=== PATIENT | male | born 1955 | race Caucasian/White ===

== ENCOUNTER 2018-11-22 05:46 | Inpatient (IN) ==
[2018-11-22] MEDS ORDERED: Ketamine Inj 50 MG/5 ML Syringe IV.PUSH ONE ×2 (05:49→07:05)
[2018-11-22] MEDS ORDERED: Midazolam Inj 5 MG/ML 1 ML Vial IV.PUSH ONE (05:53)
[2018-11-22] MEDS ORDERED: fentaNYL Citrate Inj 100 MCG/2 ML Ampul IV.PUSH ONE (05:53)
[2018-11-22 06:15] LABS: Baso # (Auto) 0.1 th/mm3 (0.0-0.2); Baso % (Auto) 1.3 % (0.0-2.0); Eos # (Auto) 0.4 th/mm3 (0.0-0.4); Eos % (Auto) 5.6 % (0.0-4.0); Hematocrit 37.4 % (39.0-51.0); Lymph % (Auto) 25.8 % (9.0-44.0); Mean Corpuscular HGB Conc 34.8 % (32.0-36.0); Mean Corpuscular Hemoglobin 29.9 pg (27.0-34.0); Mean Corpuscular Volume 85.8 fL (80.0-100.0); Mean Platelet Volume 9.6 fL (7.0-11.0); Mono # (Auto) 0.8 th/mm3 (0.0-0.9); Mono % (Auto) 9.9 % (0.0-8.0); Neut # (Auto) 4.4 th/mm3 (1.8-7.7); Neut % (Auto) 57.4 % (16.0-70.0); Platelet Count 250 th/mm3 (150-450); Red Blood Count 4.36 mil/mm3 (4.50-5.90); Red Cell Distribution Width 16.8 % (11.6-17.2); White Blood Count 7.7 th/mm3 (4.0-11.0)
[2018-11-22 06:16] LABS: Activated Partial Thrombo Time 24.7 sec (23.4-31.7); INR 1.1 Ratio; Prothrombin Time 10.7 sec (9.8-11.6)
[2018-11-22 06:24] LABS: ABG Base Excess -3.1 mmol/L (-2-2); ABG PCO2 59 mmHg (38-42); ABG PO2 106 mmHg (61-120)
[2018-11-22] MEDS ORDERED: Naloxone Inj 0.4 MG/ML Vial ONE (06:32)
--- NOTE | 2018-11-22 06:42 | XR ---
EXAM DATE: 11/22/2018 6:10 AM EST AGE/SEX: 63 years / Male INDICATIONS: E-T tube placement, unresponsive patient. CLINICAL DATA: This is the patient's initial encounter. Patient reports that signs and symptoms have been present for 1 day and indicates a pain score of Nonresponsive. MEDICAL/SURGICAL HISTORY: Non-responsive. Non-responsive. COMPARISON: No prior exams available for comparison. FINDINGS: Single view the chest symptoms. The pacemaker and endotracheal tube are in good position. There is pa tchy interstitial prominence throughout the lungs particularly on the right midlung zone. There is no visible pneumothorax. CONCLUSION: Diffuse pulmonary interstitial prominence. Some consolidation right midlung zone. ET tube between the clavicles and the liana Electronically signed by: Norman Ro MD Board Certified Radiologist 11/22/2018 6:41 AM EST
[2018-11-22 06:45] LABS: Albumin 3.3 g/dL (3.4-5.0); Calcium 7.4 mg/dL (8.5-10.1); Carbon Dioxide 22.9 meq/L (21.0-32.0); Magnesium 2.3 mg/dL (1.5-2.5); Potassium 3.7 meq/L (3.5-5.1); Total Protein 6.6 g/dL (6.4-8.2); Troponin I 0.03 ng/mL (0.02-0.05)
[2018-11-22] MEDS ORDERED: Azithromycin Inj 500 MG in Sodium Chlor 0.9% Inj 250 ML IV.SIG ONE (06:52)
--- NOTE | 2018-11-22 06:54 | ED ---
HPI General Chief complaint: Shortness of Breath/Dyspnea Stated complaint: Diff breathing Time Seen by Provider: 11/22/18 05:49 Source: EMS Mode of arrival: EMS Limitations: physical limitation History of Present Illness HPI narrative: 63 yo M bibems after severe dyspnea at home. Pt intubated on scene per EMS 2/2 dyspnea with hypoxia with o2 sat in the 80s. + hx CHF. BP on scene 180/120 per EMS. History is limited. EMS reported patient has CHF, no lasix given. O2 increased to approx 100 en route. Related Data Home Medications Medication Instructions Recorded Confirmed atorvastatin 40 mg PO DAILY 11/22/18 11/22/18 budesonide-formoterol [Symbicort] 2 puff INHALATION BID 11/22/18 11/22/18 clopidogrel 75 mg PO DAILY 11/22/18 11/22/18 furosemide 40 mg PO DAILY 11/22/18 11/22/18 lisinopril 2.5 mg PO DAILY 11/22/18 11/22/18 losartan 25 mg PO DAILY 11/22/18 11/22/18 metoprolol succinate 25 mg PO DAILY 11/22/18 11/22/18 pantoprazole 40 mg PO DAILY 11/22/18 11/22/18 tiotropium bromide [Spiriva 2 puff INHALATION DAILY 11/22/18 11/22/18 Respimat] trazodone 50 mg PO DAILY 11/22/18 11/22/18 Allergies Allergy/AdvReac Type Severity Reaction Status Date / Time No Known Allergies Allergy Verified 11/22/18 05:49 Review of Systems ROS Unobtainable ROS Unobtainable: unobtainable due to endotracheal tube and unobtainable due to mental condition PMFSH Medical History Medical History CHF (congestive heart failure) (Acute) GERD (gastroesophageal reflux disease) (Acute) HTN (hypertension) (Acute) High cholesterol (Acute) Social History Social History Substance History: Unable to Obtain Smoking Status: Cognitive impairment How Often Do You Have a Drink Containing Alcohol: Unable to Obtain Recent Travel in [place] within the Last 8 Weeks: No Recent Out of Country Travel within the Last 8 Weeks: No Exam Narrative Exam Narrative: GENERAL: 63 yo M, intubated SKIN: Focused skin assessment warm/dry. HEAD: Atraumatic. Normocephalic. EYES: Pupils equal and round. No scleral icterus. No injection or drainage. ENT: Pt intubated. no epistaxis. dry mucous membrane NECK: Trachea midline. + JVD. CARDIOVASCULAR: Tachycardia. Regular. RESPIRATORY: Breath sounds present bilaterally. Rales bilaterally. Intubated. GASTROINTESTINAL: Abdomen soft, non-tender, nondistended. Hepatic and splenic margins not palpable. MUSCULOSKELETAL: No obvious deformities. No clubbing. No cyanosis. Minimal edema bilaterally. NEUROLOGICAL: Awake and alert. No obvious cranial nerve deficits. Motor grossly within normal limits. Normal speech. PSYCHIATRIC: Appropriate mood and affect; insight and judgment normal. Course Initial Documented Vital Signs Respiratory Rate 24 11/22/18 05:55 Pulse Oximetry 100 11/22/18 05:55 Last Documented Vital Signs Pulse Rate 82 11/22/18 07:20 Respiratory Rate 19 11/22/18 07:20 Blood Pressure 124/74 11/22/18 07:20 Pulse Oximetry 100 11/22/18 07:15 Critical Care Time Critical Care Time: Yes Total Critical Care Time: 35 Attestation: Aggregate critical care time was 35 minutes. Time to perform other separately billable procedures was not included in the critical care time. My time did not include minutes spent treating any other patients simultaneously or on activities that did not directly contribute to the patient's treatment. The services I provided to this patient were to treat and/or prevent clinically significant deterioration that could result in: Respiratory arrest, cardiopulmonary arrest I provided critical care services requiring my management, as noted below: Chart data review, documentation time, medication orders and management, vital sign assessments/reviewing monitor data, ordering and reviewing lab tests, ordering and interpreting/reviewing x-rays and diagnostic studies, care of the patient and discussion of the patient with the admitting physicians. Medical Decision Making MDM Narrative Medical decision making narrative: CBC normal BUN/Cr 34/1.71 BNP 589 EKG sinus rate 84, nonspecific ST changes multiple leads abg 7.23/59/24 BE -3.1 PO2 106 CXR R lung pna, diffuse pulmonary interstitial prominence Pt with probable PNA and CHF exacerbation. Preexisting pulmonary interstitial disease not excluded. Rocephin azitho started Blood cultures drawn Lasix 60mg Ketamine 50mg IV x 2 here Versed 5mg IV x 1 Sedation complicated by hypotension d/w Dr Pruett for import/export administrator service Medical Screen Exam Complete: Yes Emergency Medical Condition: Yes Lab Data Result diagrams: 11/22/18 05:45 11/22/18 05:45 Lab Results 11/22/18 11/22/18 11/22/18 Range/Units 05:45 05:45 05:45 WBC 7.7 (4.0-11.0) th/mm3 RBC 4.36 L (4.50-5.90) mil/mm3 Hgb 13.0 (13.0-17.0) gm/dL Hct 37.4 L (39.0-51.0) % MCV 85.8 (80.0-100.0) fL MCH 29.9 (27.0-34.0) pg MCHC 34.8 (32.0-36.0) % RDW 16.8 (11.6-17.2) % Plt Count 250 (150-450) th/mm3 MPV 9.6 (7.0-11.0) fL Neut % (Auto) 57.4 (16.0-70.0) % Lymph % (Auto) 25.8 (9.0-44.0) % Wharton % (Auto) 9.9 H (0.0-8.0) % Eos % (Auto) 5.6 H (0.0-4.0) % Baso % (Auto) 1.3 (0.0-2.0) % Neut # (Auto) 4.4 (1.8-7.7) th/mm3 Lymph # (Auto) 2.0 (1.0-4.8) th/mm3 Wharton # (Auto) 0.8 (0.0-0.9) th/mm3 Eos # (Auto) 0.4 (0.0-0.4) th/mm3 Baso # (Auto) 0.1 (0.0-0.2) th/mm3 WBC Differential . Differential Comment Auto diff final PT 10.7 (9.8-11.6) sec INR 1.1 Ratio APTT 24.7 (23.4-31.7) sec Puncture Site Patient Temperature O2 Saturation (90-100) % ABG pH (7.380-7.420) ABG pCO2 (38-42) mmHg ABG pO2 (61-120) mmHg ABG HCO3 (22-26) mmol/L ABG O2 Content (12.0-20.0) Vol % ABG Base Excess (-2-2) mmol/L ABG Methemoglobin (0-2) % Dmitriy Test Hemoglobin (12.0-16.0) G/DL Carboxyhemoglobin (0-4) % O2 Delivery Device Vent Setting Inspired O2 % Critical Value Sodium 136 (136-145) meq/L Potassium 3.7 (3.5-5.1) meq/L Chloride 103 (98-107) meq/L Carbon Dioxide 22.9 (21.0-32.0) meq/L Anion Gap 10 (5-15) meq/L BUN 34 H (7-18) mg/dL Creatinine 1.71 H (0.60-1.30) mg/dL Estimated GFR 40 L (>89) mL/min Random Glucose 171 H (74-106) mg/dL Calcium 7.4 L* (8.5-10.1) mg/dL Calcium Adj for Albumin 8.0 L (8.5-10.1) mg/dL Magnesium 2.3 (1.5-2.5) mg/dL Total Bilirubin 0.3 (0.2-1.0) mg/dL AST 21 (15-37) U/L ALT 20 (12-78) U/L Alkaline Phosphatase 77 (45-117) U/L Troponin I 0.03 (0.02-0.05) ng/mL B-Natriuretic Peptide (0-100) pg/mL Total Protein 6.6 (6.4-8.2) g/dL Albumin 3.3 L (3.4-5.0) g/dL 11/22/18 11/22/18 Range/Units 05:45 06:11 WBC (4.0-11.0) th/mm3 RBC (4.50-5.90) mil/mm3 Hgb (13.0-17.0) gm/dL Hct (39.0-51.0) % MCV (80.0-100.0) fL MCH (27.0-34.0) pg MCHC (32.0-36.0) % RDW (11.6-17.2) % Plt Count (150-450) th/mm3 MPV (7.0-11.0) fL Neut % (Auto) (16.0-70.0) % Lymph % (Auto) (9.0-44.0) % Wharton % (Auto) (0.0-8.0) % Eos % (Auto) (0.0-4.0) % Baso % (Auto) (0.0-2.0) % Neut # (Auto) (1.8-7.7) th/mm3 Lymph # (Auto) (1.0-4.8) th/mm3 Wharton # (Auto) (0.0-0.9) th/mm3 Eos # (Auto) (0.0-0.4) th/mm3 Baso # (Auto) (0.0-0.2) th/mm3 WBC Differential Differential Comment PT (9.8-11.6) sec INR Ratio APTT (23.4-31.7) sec Puncture Site Left radial Patient Temperature 98.6 O2 Saturation 94 (90-100) % ABG pH 7.23 L* (7.380-7.420) ABG pCO2 59 H* (38-42) mmHg ABG pO2 106 (61-120) mmHg ABG HCO3 24 (22-26) mmol/L ABG O2 Content 16.0 (12.0-20.0) Vol % ABG Base Excess -3.1 L (-2-2) mmol/L ABG Methemoglobin 0.6 (0-2) % Dmitriy Test Present Hemoglobin 12.0 (12.0-16.0) G/DL Carboxyhemoglobin 2.7 (0-4) % O2 Delivery Device Ventilator Vent Setting See comments Inspired O2 50 % Critical Value Yes Sodium (136-145) meq/L Potassium (3.5-5.1) meq/L Chloride (98-107) meq/L Carbon Dioxide (21.0-32.0) meq/L Anion Gap (5-15) meq/L BUN (7-18) mg/dL Creatinine (0.60-1.30) mg/dL Estimated GFR (>89) mL/min Random Glucose (74-106) mg/dL Calcium (8.5-10.1) mg/dL Calcium Adj for Albumin (8.5-10.1) mg/dL Magnesium (1.5-2.5) mg/dL Total Bilirubin (0.2-1.0) mg/dL AST (15-37) U/L ALT (12-78) U/L Alkaline Phosphatase (45-117) U/L Troponin I (0.02-0.05) ng/mL B-Natriuretic Peptide 589 H (0-100) pg/mL Total Protein (6.4-8.2) g/dL Albumin (3.4-5.0) g/dL Imaging Data Radiologist's impression: Chest X-Ray 11/22/18 05:50 CONCLUSION: Diffuse pulmonary interstitial prominence. Some consolidation right midlung zone. ET tube between the clavicles and the liana Discharge Plan Discharge Disposition Patient Disposition: ED Admit(ED Internal Use Only) Discharge Order Discharge Orders: ED Use Only Admit Order (Routine); Ordered 11/22/18 Ordered By: Samna Zhang Physicians Team ED Provider: Saman Zhang Primary Care Provider: MICKI, Attending Provider: Katlyn Pruett Discharge Interventions Interventions: Vital Signs Last Done: 11/22/18 07:20 Status ED Status: Admitted Patient
[2018-11-22] MEDS ORDERED: Propofol 1000 mg/100 ml Inj 1,000 MG/100 ML BOTTLE ONE (07:38)
[2018-11-22] MEDS: Enoxaparin Inj 40 MG/0.4 ML Syringe SQ SCH (08:58)
--- NOTE | 2018-11-22 09:18 | P.HPCC ---
History of Present Illness Service: Critical care Primary Care Physician: UNKNOWN Chief Complaint: SOB History of Present Illness: Patient is a 63-year-old male who normally lives in [place], currently visiting son in [place]. He has a history of CHF EF 25%, probable COPD, continued tobacco abuse, hypertension, dyslipidemia. Patient developed severe dyspnea while at his son's home EMS was called oxygen sats were in 80s blood pressure was 180/120. Due to impending respiratory failure patient was emergently intubated by the EMS. ER workup including chest x-ray showed bilateral pulmonary edema and probable right lung consolidation. BUN/Cr 34/1.71, BNP 589. ABG 7.23/59/24 BE -3.1 PO2 106. Patient received breathing treatment, antibiotics Rocephin and azithromycin and 60 mg of IV Lasix in the ED. critical care medicine was consulted for admission I evaluated the patient in the ED. his son is at the bedside. Currently sedated with propofol and fentanyl mildly hypotensive. Bilateral crackles on exam. He acknowledges history of CHF indicates that this ejection fraction is 25%. Patient is currently making urine with 60 mg IV Lasix given. We will start Lasix 40 mg scheduled every 8 hours. Placed on scheduled DuoNeb and as needed. Change antibiotic to cefepime and azithromycin. May need to start low- dose Levophed to maintain map above 65 - Diagnosis (1) Acute hypoxemic respiratory failure (2) Hypercarbia (3) Acute systolic heart failure (4) Pulmonary edema (5) Pneumonia (6) Acute kidney failure (7) History of CHF (congestive heart failure) (8) Coronary artery disease (9) Dyslipidemia (10) Ischemic cardiomyopathy (11) Tobacco abuse Inpatient Certification: I certify that the inpatient services were ordered in accordance with Medicare regulations governing the order. This includes certification that hospital inpatient services are reasonable and necessary and in the case of services not specified as inpatient-only under 42 CFR 419.22(n), that they are appropriately provided as inpatient services in accordance to with the 2-midnight benchmark under 43 CFR 412.3(e) Estimated Total Length of Stay (Days): 5 Plans for Post Hospital Care: Not yet determined Review of Systems unobtainable due to endotracheal tube PMFSH - History History Provided By: Land Title Examiner / EMT - Medical History Medical History: Medical History (Last Reviewed 11/22/18 @ 09:27 by Katlyn Pruett MD) CHF (congestive heart failure) GERD (gastroesophageal reflux disease) HTN (hypertension) High cholesterol - Tobacco History Smoking Status: Cognitive impairment - Alcohol History How Often Do You Have a Drink Containing Alcohol: Unable to Obtain - Substance Use History Substance History: Unable to Obtain - Travel History Recent Travel in the [place] Within the Last 8 Weeks: No Recent Travel Out of the Country Within the Last 8 Weeks: No - Immunization History Tetanus Immunization: Unable to Assess Medications and Allergies Active Medications: Active Medications Albuterol (Duoneb Neb (Prn)) 1 ampul NEB Q4HR NEB PRN PRN Reason: SHORTNESS OF BREATH Albuterol (Duoneb Neb (Alberto)) 1 ampul NEB Q6HR NEB ALBERTO Last Admin: 11/22/18 08:26 Dose: 1 ampul Atorvastatin Calcium (Lipitor) 40 mg PO DAILY ALBERTO Chlorhexidine Gluconate (Chlorhexidine 2% Cloth) 3 pack TOPICAL DAILY@0400 ALBERTO Stop: 11/28/18 03:59 Chlorhexidine Gluconate (Chlorhexidine 2% Cloth) 3 pack TOPICAL DAILY@0400 PRN PRN Reason: Extra cloth needed Stop: 11/28/18 03:59 Chlorhexidine Gluconate (Peridex 0.12% Oral Kit) 15 ml OROPHARYNG BID@0800, 2000 [facility] Clopidogrel Bisulfate (Plavix) 75 mg PO DAILY ALBERTO Enoxaparin Sodium (Lovenox Inj) 40 mg SQ Q24H [facility] Last Admin: 11/22/18 08:58 Dose: 40 mg Famotidine (Pepcid Pf Inj) 20 mg IV.PUSH Q12HR ALBERTO Furosemide (Lasix Inj) 40 mg IV.PUSH Q8H [facility] Last Admin: 11/22/18 09:16 Dose: 20 mg Fentanyl (Fentanyl 10 Mcg/Ml Premix Drip) 2,500 mcg in 250 mls @ 5 mls/hr IV.SIG TITRATE PRN; Protocol PRN Reason: Per Protocol Cefepime HCl 2,000 mg/ Sodium (Chloride) 100 mls @ 200 mls/hr IV.SIG Q12H ALBERTO Azithromycin 250 mg/ Sodium (Chloride) 250 mls @ 250 mls/hr IV.SIG Q24H ALBERTO Propofol (Diprivan 1000 Mg/100 Ml Inj) 1,000 mg in 100 mls @ 0 mls/hr IV.CONT TITRATE PRN; Protocol PRN Reason: Per Protocol Miscellaneous Medication () 1 each OROPHARYNG 0000,0400,1200,1600 ALBERTO Allergies Allergy/AdvReac Type Severity Reaction Status Date / Time No Known Allergies Allergy Verified 11/22/18 05:49 Home Medications Medication Instructions Recorded Confirmed Type atorvastatin 40 mg PO DAILY 11/22/18 11/22/18 History budesonide-formoterol [Symbicort] 2 puff INHALATION BID 11/22/18 11/22/18 History clopidogrel 75 mg PO DAILY 11/22/18 11/22/18 History furosemide 40 mg PO DAILY 11/22/18 11/22/18 History lisinopril 2.5 mg PO DAILY 11/22/18 11/22/18 History losartan 25 mg PO DAILY 11/22/18 11/22/18 History metoprolol succinate 25 mg PO DAILY 11/22/18 11/22/18 History pantoprazole 40 mg PO DAILY 11/22/18 11/22/18 History tiotropium bromide [Spiriva 2 puff INHALATION DAILY 11/22/18 11/22/18 History Respimat] trazodone 50 mg PO DAILY 11/22/18 11/22/18 History Results - Labs CBC & Chem 7: 11/22/18 05:45 11/22/18 05:45 Labs: Short CBC 11/22/18 Range/Units 05:45 WBC 7.7 (4.0-11.0) th/mm3 Hgb 13.0 (13.0-17.0) gm/dL Hct 37.4 L (39.0-51.0) % Plt Count 250 (150-450) th/mm3 [facility] 11/22/18 05:45 Sodium 136 Potassium 3.7 Chloride 103 Carbon Dioxide 22.9 BUN 34 H Creatinine 1.71 H Calcium 7.4 L* Cardiac Enzymes 11/22/18 Range/Units 05:45 Troponin I 0.03 (0.02-0.05) ng/mL Liver Function 11/22/18 Range/Units 05:45 Total Bilirubin 0.3 (0.2-1.0) mg/dL AST 21 (15-37) U/L ALT 20 (12-78) U/L Alkaline Phosphatase 77 (45-117) U/L Albumin 3.3 L (3.4-5.0) g/dL - Imaging Impressions Chest X-Ray 11/22/18 05:50 CONCLUSION: Diffuse pulmonary interstitial prominence. Some consolidation right midlung zone. ET tube between the clavicles and the liana Exam Vital signs: Vital Signs 11/22/18 05:55 11/22/18 06:02 11/22/18 06:22 Pulse Rate 86 Respiratory Rate 24 18 Blood Pressure 88/52 L Pulse Oximetry 100 100 100 11/22/18 06:41 11/22/18 07:05 11/22/18 07:08 Pulse Rate 80 77 Respiratory Rate 18 20 Blood Pressure 98/60 L 110/71 Pulse Oximetry 100 100 100 11/22/18 07:15 11/22/18 07:20 11/22/18 08:00 Pulse Rate 87 82 Respiratory Rate 17 19 26 H Blood Pressure 105/63 124/74 Pulse Oximetry 100 100 11/22/18 09:07 Pulse Rate 69 Respiratory Rate 20 Blood Pressure 89/62 L Pulse Oximetry Narrative: GENERAL: 63-year-old male intubated sedated with propofol fentanyl, wakes up easily follows commands SKIN: warm/dry. HEAD: Atraumatic. Normocephalic. EYES: Pupils equal and round. No scleral icterus. No injection or drainage. ENT: Pt intubated. dry mucous membrane NECK: Trachea midline. + JVD. CARDIOVASCULAR: Tachycardia. Regular. Slightly hypotensive RESPIRATORY: Breath sounds present bilaterally. Rales bilaterally. Few expiratory wheezes GASTROINTESTINAL: Abdomen soft, non-tender, nondistended. Hepatic and splenic margins not palpable. MUSCULOSKELETAL: No obvious deformities. No clubbing. No cyanosis. No pedal edema NEUROLOGICAL: Awake and alert on the ventilator. No obvious cranial nerve deficits. Motor grossly within normal limits Septic Shock Reassessment Septic shock perfusion: reassessment completed Caprini VTE Risk Assessment Caprini VTE Risk Assessment: Moderate/High Risk (score >= 2) Caprini Risk Assessment Model: Point Value = 1 Point Value = 2 Point Value = 3 Point Value = 5 Age 41-60 Minor surgery BMI > 25 kg/m2 Swollen legs Varicose veins or History of unexplained or recurrent spontaneous Oral contraceptives or hormone replacement Sepsis (< 1 month) Serious lung disease, including pneumonia (< 1 month) Abnormal pulmonary function Acute myocardial infarction Congestive heart failure (< 1 month) History of inflammatory bowel disease Medical patient at bed rest Age 61-74 Arthroscopic surgery Major open surgery (> 45 min) Laparoscopic surgery (> 45 min) Malignancy Confined to bed (> 72 hours) Immobilizing plaster cast Central venous access Age >= 75 History of VTE Family history of VTE Factor V Leiden Prothrombin [id number] Lupus anticoagulant Anticardiolipin antibodies Elevated serum homocysteine Heparin-induced thrombocytopenia Other congenital or acquired thrombophilia Stroke (< 1 month) Elective arthroplasty Hip, pelvis, or leg fracture Acute spinal cord injury (< 1 month) Prophylaxis Regimen: Total Risk Factor Score Risk Level Prophylaxis Regimen 0-1 Low Early ambulation 2 Moderate Order ONE of the following: *Sequential Compression Device (SCD) *Heparin 5000 units SQ BID 3-4 Higher Order ONE of the following medications: *Heparin 5000 units SQ TID *Enoxaparin/Lovenox 40 mg SQ daily (WT < 150 kg, CrCl > 30 mL/min) *Enoxaparin/Lovenox 30 mg SQ daily (WT < 150 kg, CrCl > 10-29 mL/min) *Enoxaparin/Lovenox 30 mg SQ BID (WT < 150 kg, CrCl > 30 mL/min) AND/OR *Sequential Compression Device (SCD) 5 or more Highest Order ONE of the following medications: *Heparin 5000 units SQ TID (Preferred with Epidurals) *Enoxaparin/Lovenox 40 mg SQ daily (WT < 150 kg, CrCl > 30 mL/min) *Enoxaparin/Lovenox 30 mg SQ daily (WT < 150 kg, CrCl > 10-29 mL/min) *Enoxaparin/Lovenox 30 mg SQ BID (WT < 150 kg, CrCl > 30 mL/min) AND *Sequential Compression Device (SCD) Assessment and Plan - Problem List (1) Acute hypoxemic respiratory failure Code(s): J96.01 - Acute respiratory failure with hypoxia Status: Acute (2) Hypercarbia Code(s): R06.89 - Other abnormalities of breathing Status: Acute (3) Acute systolic heart failure Code(s): I50.21 - Acute systolic (congestive) heart failure Status: Acute (4) Pulmonary edema Code(s): J81.1 - Chronic pulmonary edema Status: Acute (5) Pneumonia Code(s): J18.9 - Pneumonia, unspecified organism Status: Acute (6) Acute kidney failure Code(s): N17.9 - Acute kidney failure, unspecified Status: Acute (7) History of CHF (congestive heart failure) Code(s): Z86.79 - Personal history of other diseases of the circulatory system Status: Chronic (8) Coronary artery disease Code(s): I25.10 - Atherosclerotic heart disease of [place] coronary artery without angina pectoris Status: Chronic (9) Dyslipidemia Code(s): E78.5 - Hyperlipidemia, unspecified Status: Chronic (10) Ischemic cardiomyopathy Code(s): I25.5 - Ischemic cardiomyopathy Status: Chronic (11) Tobacco abuse Code(s): Z72.0 - Tobacco use Status: Chronic - Assessment and Plan Plan: NEURO: -Propofol and fentanyl for sedation and ventilator synchrony -Add Versed for additional sedation RESP: Acute hypoxemic hypercapnic respiratory failure Pulmonary edema Probable pneumonia Probable COPD -PRVC/AC, Ventilator bundle -DuoNeb every 6 hours scheduled and as needed -SBT when appropriate -Tobacco cessation counseling -Give 1 dose of Solu-Medrol 125 mg x1 -Broad-spectrum antibiotic with cefepime and azithromycin CV: Acute systolic heart failure exacerbation Ischemic cardiomyopathy EF 25% Coronary artery disease status post AK Hypertension Dyslipidemia -IV Lasix 60 mg x1 given. Start scheduled Lasix 40 mg every 8 hours -Hold CHRIS inhibitor is on beta-blockers due to hypotension. Continue statins -Check 2D echo, serial troponins GI: -N.p.o., IV famotidine -Start tube feeds in 24 hours, if not extubated : Acute kidney injury -Previous creatinine unknown. Check UA -Monitor renal function closely. Andrews catheter. -Further workup if creatinine is not improving ID: Probable pneumonia Sepsis -Antibiotics cefepime and azithromycin -Blood urine and sputum cultures HEME: -Monitor CBC, coags ENDO: -Electrolyte replacement per protocol -Sliding scale insulin if needed PROPH: -Bilateral lower extremity SCDs. Lovenox/famotidine LINES: -Utilize peripheral IVs, central line if needed CC time 45 min Code Status: Full Discussed Condition With: Dr. Zhang
[2018-11-22] MEDS: Chlorhexidine 0.12% Oral Kit 15 ML UDC OROPHARYNG SCH ×2 (09:19→20:47)
[2018-11-22] MEDS: Famotidine PF Inj 20 MG/2 ML Vial IV.PUSH SCH ×2 (10:25→20:46)
[2018-11-22] MEDS ORDERED: MethylPREDNISolone Sod Succinate Inj 125 MG/2 ML Vial IV.PUSH ONE (10:30)
[2018-11-22] MEDS ORDERED: Norepinephrine Inj 8 MG in Sodium Chlor 0.9% Inj 242 ML IV.CONT PRN (11:00)
[2018-11-22] MEDS: Propofol 1000 mg/100 ml Inj 1,000 MG/100 ML BOTTLE IV.CONT PRN ×2 (13:00→22:20)
[2018-11-22] MEDS: fentaNYL 10 mcg/mL Premix Drip 2,500 MCG/250 ML BAG IV.SIG PRN ×2 (13:00→20:47)
[2018-11-22] MEDS: Oral Hygiene Kit OROPHARYNG SCH ×3 (17:46→23:42)
--- NOTE | 2018-11-23 01:55 | ECG ---
Date Performed: 11/22/2018 Time Performed: 05:55:23 PTAGE: 63 years EKG: Sinus rhythm POSSIBLE ANTERIOR MYOCARDIAL INFARCTION NON-SPECIFIC ST/T WAVE CHANGES NO PREVIOUS TRACING DOCTOR: Deuce Zhang Interpretating Date/Time 11/23/2018 01:54:37
[2018-11-23] MEDS ORDERED: Chlorhexidine Gluconate 2% 1 Pack (2 Cloths) TOPICAL PRN (04:00)
[2018-11-23] MEDS: Oral Hygiene Kit OROPHARYNG SCH ×3 (04:14→16:00)
[2018-11-23] MEDS: Chlorhexidine Gluconate 2% 1 Pack (2 Cloths) TOPICAL SCH (04:14)
--- NOTE | 2018-11-23 04:18 | XR ---
EXAM DATE: 11/23/2018 3:48 AM EST AGE/SEX: 63 years / Male INDICATIONS: Shortness of breath, possible pulmonary disease. CLINICAL DATA: This is the patient's subsequent encounter. Patient reports that signs and symptoms h ave been present for 2 days and indicates a pain score of Nonresponsive. MEDICAL/SURGICAL HISTORY: Non-responsive. Non-responsive. COMPARISON: C, CHEST 1V SINGLE AP, 11/22/2018. . FINDINGS: Stable dual lead AICD device. Stable ETT. Improved diffuse interstitial and patchy airspace opacities most notably in the right midlung zone. Cardiomediastinal contours are stable. Remainder of exam is unchanged. CONCLUSION: 1. Stable ETT. 2. Improved diffuse interstitial prominence and patchy airspace disease most notably in the right mi dlung zone. Electronically signed by: Puneet Victoria MD Board Certified Radiologist 11/23/2018 4:17 AM YULIYA Kim
[2018-11-23 06:58] LABS: Baso % (Auto) 0.4 % (0.0-2.0); Lymph # (Auto) 0.4 th/mm3 (1.0-4.8); Lymph % (Auto) 3.9 % (9.0-44.0); Mean Corpuscular HGB Conc 34.4 % (32.0-36.0); Mean Corpuscular Hemoglobin 29.3 pg (27.0-34.0); Mean Corpuscular Volume 85.4 fL (80.0-100.0); Mean Platelet Volume 9.9 fL (7.0-11.0); Mono # (Auto) 1.1 th/mm3 (0.0-0.9); Mono % (Auto) 9.5 % (0.0-8.0); Neut # (Auto) 9.5 th/mm3 (1.8-7.7); Neut % (Auto) 86.2 % (16.0-70.0); Platelet Count 241 th/mm3 (150-450); Red Cell Distribution Width 16.8 % (11.6-17.2); White Blood Count 11.1 th/mm3 (4.0-11.0)
[2018-11-23 07:29] LABS: Alanine Aminotransferase 15 U/L (12-78); Albumin 3.5 g/dL (3.4-5.0); Anion Gap 8 meq/L (5-15); Aspartate Aminotransferase 13 U/L (15-37); Blood Urea Nitrogen 40 mg/dL (7-18); Calcium 8.4 mg/dL (8.5-10.1); Carbon Dioxide 25.1 meq/L (21.0-32.0); Chloride 106 meq/L (98-107); Glomerular Filtration Rate 38 mL/min (>89); Glucose,Random 140 mg/dL (74-106); Potassium 4.6 meq/L (3.5-5.1); Sodium 139 meq/L (136-145)
[2018-11-23 07:38] LABS: Alkaline Phosphatase 72 U/L (45-117); Total Protein 6.8 g/dL (6.4-8.2)
[2018-11-23] MEDS: Famotidine PF Inj 20 MG/2 ML Vial IV.PUSH SCH ×2 (08:00→21:05)
[2018-11-23] MEDS: Chlorhexidine 0.12% Oral Kit 15 ML UDC OROPHARYNG SCH ×2 (08:00→20:06)
[2018-11-23] MEDS: Azithromycin Inj 250 MG in Sodium Chlor 0.9% Inj 250 ML IV.SIG SCH (08:00)
[2018-11-23] MEDS: Enoxaparin Inj 40 MG/0.4 ML Syringe SQ SCH (08:00)
--- NOTE | 2018-11-23 09:54 | P.PNCC ---
Subjective Subjective Remarks/Hospital Course: Patient is a 63-year-old male who normally lives in [place], currently visiting son in [facility]. He has a history of CHF EF 25%, probable COPD, continued tobacco abuse, hypertension, dyslipidemia. Patient developed severe dyspnea while at his son's home EMS was called oxygen sats were in 80s blood pressure was 180/120. Due to impending respiratory failure patient was emergently intubated by the EMS. ER workup including chest x-ray showed bilateral pulmonary edema and probable right lung consolidation. BUN/Cr 34/1.71, BNP 589. ABG 7.23/59/24 BE -3.1 PO2 106. Patient received breathing treatment, antibiotics Rocephin and azithromycin and 60 mg of IV Lasix in the ED. critical care medicine was consulted for admission I evaluated the patient in the ED. his son is at the bedside. Currently sedated with propofol and fentanyl mildly hypotensive. Bilateral crackles on exam. He acknowledges history of CHF indicates that this ejection fraction is 25%. Patient is currently making urine with 60 mg IV Lasix given. We will start Lasix 40 mg scheduled every 8 hours. Placed on scheduled DuoNeb and as needed. Change antibiotic to cefepime and azithromycin. May need to start low- dose Levophed to maintain map above 65 11/13: Patient is alert awake on the vent following commands. Tolerating CPAP. Chest x-ray shows improving pulmonary edema. Cultures negative to date. Urine output almost 3 L with Lasix. Creatinine slightly worse than 1.8 Objective Vital Signs / I&O: Vital Signs 11/22/18 10:29 11/22/18 10:55 11/22/18 11:46 Temperature Pulse Rate 68 70 Respiratory Rate 20 20 25 H Blood Pressure 90/59 L 89/50 L Pulse Oximetry 100 99 11/22/18 11:57 11/22/18 12:52 11/22/18 13:00 Temperature 97.8 F Pulse Rate 67 70 71 Respiratory Rate 20 20 18 Blood Pressure 90/56 L 100/60 91/55 L Pulse Oximetry 100 100 11/22/18 13:48 11/22/18 13:55 11/22/18 14:00 Temperature Pulse Rate 73 Respiratory Rate 20 21 Blood Pressure Pulse Oximetry 94 L 100 11/22/18 16:32 11/22/18 16:45 11/22/18 17:00 Temperature 98.6 F Pulse Rate 60 65 61 Respiratory Rate Blood Pressure 91/58 L 88/60 L Pulse Oximetry 96 97 96 11/22/18 17:15 11/22/18 17:30 11/22/18 17:45 Temperature Pulse Rate 65 63 73 Respiratory Rate Blood Pressure 89/59 L 92/60 L 105/62 Pulse Oximetry 95 96 99 11/22/18 18:00 11/22/18 18:15 11/22/18 20:00 Temperature Pulse Rate 68 79 Respiratory Rate Blood Pressure 98/62 L 101/63 Pulse Oximetry 99 95 95 11/22/18 20:16 11/22/18 20:18 11/22/18 20:23 Temperature 97.9 F Pulse Rate 75 60 60 Respiratory Rate 20 20 Blood Pressure 85/50 L Pulse Oximetry 97 95 11/22/18 21:00 11/22/18 22:00 11/22/18 23:00 Temperature Pulse Rate 60 67 Respiratory Rate 21 Blood Pressure 114/63 121/75 Pulse Oximetry 95 11/22/18 23:40 11/23/18 00:00 11/23/18 01:16 Temperature 97.9 F Pulse Rate 67 96 H Respiratory Rate 20 20 Blood Pressure 94/61 L 90/56 L Pulse Oximetry 94 L 95 96 11/23/18 02:00 11/23/18 03:00 11/23/18 04:00 Temperature Pulse Rate 81 83 63 Respiratory Rate 20 20 Blood Pressure 105/56 L 95/54 L Pulse Oximetry 99 97 11/23/18 04:02 11/23/18 04:17 11/23/18 05:00 Temperature 98.1 F Pulse Rate 73 62 61 Respiratory Rate 20 20 20 Blood Pressure 90/52 L 88/51 L Pulse Oximetry 100 98 97 11/23/18 06:00 11/23/18 08:27 11/23/18 09:28 Temperature Pulse Rate 67 82 Respiratory Rate 20 20 23 Blood Pressure 90/67 L Pulse Oximetry 94 L 99 Intake & Output 11/22/18 11/23/18 11/23/18 18:59 06:59 18:59 Intake Total 450 / 450 789.6 / 789.6 Output Total 2100 / 2100 750 / 750 Balance -1650 / -1650 39.6 / 39.6 Weight 72.575 kg Intake: IV 450 / 450 789.6 / 789.6 Levophed Inj 8 MG In NS Inj 242 56.7 / 56.7 ML @ 2 MCG/MIN 3.75 mls/hr IV. CONT TITRATE PRN Rx#:[id number] Diprivan 1000 mg/100 ml Inj 1, 163.9 / 163.9 000 mg In 100 ml @ 5 MCG/KG/MIN 2.177 mls/hr IV.CONT TITRATE PRN Rx#:[id number] Azithromycin Inj 500 MG In NS 250 / 250 Inj 250 ML @ 250 mls/hr IV.SIG ONCE ONE Rx#:[id number] Maxipime Inj 2,000 MG In NS Inj 100 / 100 90 / 90 100 ML @ 200 mls/hr IV.SIG Q12H REGGIE Rx#:[id number] Rocephin Inj 2,000 MG In NS Inj 100 / 100 100 ML @ 200 mls/hr IV.SIG ONCE ONE Rx#:[id number] fentaNYL 10 mcg/mL Premix Drip 379 / 379 2,500 mcg In 250 ml @ 50 MCG/HR 5 mls/hr IV.SIG TITRATE PRN Rx #:[id number] Output: Urine Amount (Catheter) 2099 / 2099 750 / 750 Indwelling Urethral Catheter 2100 / 2100 750 / 750 Result Diagrams: 11/23/18 06:48 11/23/18 06:48 Objective Remarks: GENERAL: 63-year-old male intubated sedated with propofol fentanyl, wakes up easily follows commands SKIN: warm/dry. HEAD: Atraumatic. Normocephalic. EYES: Pupils equal and round. No scleral icterus. No injection or drainage. ENT: Pt intubated. dry mucous membrane NECK: Trachea midline. + JVD. CARDIOVASCULAR: S1-S2 normal no murmurs RESPIRATORY: Breath sounds present bilaterally. Rales bilaterally. Few expiratory wheezes GASTROINTESTINAL: Abdomen soft, non-tender, nondistended. Hepatic and splenic margins not palpable. MUSCULOSKELETAL: No obvious deformities. No clubbing. No cyanosis. No pedal edema NEUROLOGICAL: Awake and alert on the ventilator. No obvious cranial nerve deficits. Motor grossly within normal limits Assessment and Plan - Problem List (1) Acute hypoxemic respiratory failure Code(s): J96.01 - Acute respiratory failure with hypoxia Status: Acute (2) Hypercarbia Code(s): R06.89 - Other abnormalities of breathing Status: Acute (3) Acute systolic heart failure Code(s): I50.21 - Acute systolic (congestive) heart failure Status: Acute (4) Pulmonary edema Code(s): J81.1 - Chronic pulmonary edema Status: Acute (5) Pneumonia Code(s): J18.9 - Pneumonia, unspecified organism Status: Acute (6) Acute kidney failure Code(s): N17.9 - Acute kidney failure, unspecified Status: Acute (7) History of CHF (congestive heart failure) Code(s): Z86.79 - Personal history of other diseases of the circulatory system Status: Chronic (8) Coronary artery disease Code(s): I25.10 - Atherosclerotic heart disease of [place] coronary artery without angina pectoris Status: Chronic (9) Dyslipidemia Code(s): E78.5 - Hyperlipidemia, unspecified Status: Chronic (10) Ischemic cardiomyopathy Code(s): I25.5 - Ischemic cardiomyopathy Status: Chronic (11) Tobacco abuse Code(s): Z72.0 - Tobacco use Status: Chronic - Assessment and Plan Plan: NEURO: -Hold all sedation for weaning trial RESP: Acute hypoxemic hypercapnic respiratory failure Pulmonary edema Probable pneumonia Probable COPD -PRVC/AC, Ventilator bundle -DuoNeb every 6 hours scheduled and as needed -SBT today with possible extubation -Tobacco cessation counseling -Status post 1 dose of Solu-Medrol 125 mg x1 -Broad-spectrum antibiotic with cefepime and azithromycin CV: Acute systolic heart failure exacerbation Ischemic cardiomyopathy EF 25% per patient Coronary artery disease status post [place] Hypertension Dyslipidemia -IV Lasix 60 mg x1 given in the emergency department, currently on scheduled Lasix 40 mg every 8 hours -Hold CHRIS inhibitor is on beta-blockers due to hypotension. Continue statins -F/u 2D echo, serial troponins GI: -N.p.o., IV famotidine -If extubated start cardiac diet : Acute kidney injury -Previous creatinine unknown. -Monitor renal function closely. Andrews catheter. -Further workup if creatinine is not improving -Renal ultrasound ID: Probable pneumonia Sepsis -Antibiotics cefepime and azithromycin -Blood urine and sputum cultures HEME: -Monitor CBC, coags ENDO: -Electrolyte replacement per protocol -Sliding scale insulin if needed PROPH: -Bilateral lower extremity SCDs. Lovenox/famotidine LINES: -Utilize peripheral IVs, central line if needed Level 3 Code Status: Full
--- NOTE | 2018-11-23 11:12 | US ---
EXAM DATE: 11/23/2018 11:08 AM EST AGE/SEX: 63 years / Male INDICATIONS: Increased BUN/Creatinine. CLINICAL DATA: This is the patient's initial encounter. Patient reports that signs and symptoms have been present for 1 day and indicates a pain score of 0/10. MEDICAL/SURGICAL HISTORY: Congestive heart failure. Hypercholesterolemia. Hypertension. GERD . None. COMPARISON: No prior exams available for comparison. MEASUREMENTS: Right Kidney:__9.6 x 4.1 x 4.6 cm Left Kidney:__9.6 x 5.3 x 4.8 cm FINDINGS: Right Kidney: Normal echogenicity and cortical thickness. No mass or hydronephrosis. Left Kidney: Increased echogenicity. No mass or hydronephrosis. Bladder: Andrews catheter is present. Bladder decompressed. Other: None. CONCLUSION: 1. No evidence of hydronephrosis. 2. Mild increased echogenicity of the renal parenchyma on the left side. This can be seen with chron ic medical renal disease. Electronically signed by: Bj Lacey MD Board Certified Radiologist 11/23/2018 11:11 AM EST
[2018-11-23] MEDS: traZODone 50 MG Tablet PO SCH (12:53)
--- NOTE | 2018-11-23 15:31 | ECHRPT ---
Indication: heart failure CONCLUSIONS Mildly dilated left ventricle. Mild concentric left ventricular hypertrophy. The left ventricular systolic function is severely reduced with an estimated ejection fraction in th e range of 20-25%. The left atrial size is mildly dilated. mild to moderate mitral valve regurgitation. The estimated pulmonary arterial pressure is 28 mmHg. BP: / HR: Rhythm: MEASUREMENTS (Male / Female) Normal Values Technical Quality: 2D ECHO LV Diastolic Diameter PLAX 5.8 cm 4.2 - 5.9 / 3.9 - 5.3 cm LV Systolic Diameter PLAX 4.6 cm IVS Diastolic Thickness 1.3 cm 0.6 - 1.0 / 0.6 - 0.9 cm LVPW Diastolic Thickness 1.2 cm 0.6 - 1.0 / 0.6 - 0.9 cm LV Relative Wall Thickness 0.4 RV Internal Dim ED PLAX 2.4 cm LVOT Diameter 1.8 cm Aortic Root Diameter 2.7 cm LA Systolic Diameter LX 4.4 cm 3.0 - 4.0 / 2.7 - 3.8 cm LV Ejection Fraction MOD BP 23.1 % >= 55 % LV Ejection Fraction MOD 4C 23.6 % LV Ejection Fraction 4C AL 21.2 % LV Ejection Fraction MOD 2C 20.3 % LV Ejection Fraction 2C AL 22.2 % M-MODE Aortic Root Diameter MM 4.2 cm LA Systolic Diameter MM 4.6 cm LA Ao Ratio MM 1.1 AV Cusp Separation MM 2.1 cm DOPPLER AV Peak Velocity 118.0 cm/s AV Peak Gradient 5.6 mmHg LVOT Peak Velocity 98.7 cm/s LVOT Peak Gradient 3.9 mmHg AV Area Cont Eq pk 2.1 cm Mitral E Point Velocity 88.8 cm/s Mitral A Point Velocity 33.6 cm/s Mitral E to A Ratio 2.6 LV E' Lateral Velocity 4.9 cm/s Mitral E to LV E' Lateral Ratio 18.1 LV E' Septal Velocity 4.7 cm/s Mitral E to LV E' Septal Ratio 19.0 TR Peak Velocity 213.0 cm/s TR Peak Gradient 18.1 mmHg Right Atrial Pressure 10.0 mmHg Pulmonary Artery Systolic Pressu 28.1 mmHg Right Ventricular Systolic Press 28.1 mmHg PV Peak Velocity 100.0 cm/s PV Peak Gradient 4.0 mmHg FINDINGS LEFT VENTRICLE Mildly dilated left ventricle. Mild concentric left ventricular hypertrophy. The left ventricular systolic function is severely reduced with an estimated ejection fraction in th e range of 20-25%. RIGHT VENTRICLE Normal right ventricular size and systolic function. LEFT ATRIUM The left atrial size is mildly dilated. RIGHT ATRIUM The right atrial size is normal. ATRIAL SEPTUM Normal atrial septal thickness without atrial level shunting by limited color doppler interrogation. AORTA The aortic root and proximal ascending aorta are normal in size on limited imaging. MITRAL VALVE Trace mitral valve regurgitation. AORTIC VALVE Trileaflet aortic valve. No aortic valve stenosis or regurgitation. TRICUSPID VALVE The estimated pulmonary arterial pressure is 28 mmHg. PULMONARY VALVE No pulmonary valve regurgitation or stenosis. VESSELS The inferior vena cava is normal in size. PERICARDIUM No pericardial effusion. Floyd Powell MD, FACC, [facility] (Electronically Signed) Final Date:23 November 2018 15:31
[2018-11-23] MEDS: Budesonide-Formoterol 160/4.5 MCG 6 GM Inhaler INH SCH ×2 (17:37→21:04)
[2018-11-24] MEDS: Oral Hygiene Kit OROPHARYNG SCH ×5 (00:05→23:37)
[2018-11-24] MEDS: Chlorhexidine Gluconate 2% 1 Pack (2 Cloths) TOPICAL SCH (03:44)
[2018-11-24 05:10] LABS: Hematocrit 33.3 % (39.0-51.0); Hemoglobin 11.4 gm/dL (13.0-17.0); Mean Corpuscular HGB Conc 34.2 % (32.0-36.0); Mean Corpuscular Hemoglobin 29.4 pg (27.0-34.0); Mean Corpuscular Volume 86.1 fL (80.0-100.0); Mean Platelet Volume 10.2 fL (7.0-11.0); Platelet Count 197 th/mm3 (150-450); Red Blood Count 3.87 mil/mm3 (4.50-5.90); Red Cell Distribution Width 16.8 % (11.6-17.2); White Blood Count 9.5 th/mm3 (4.0-11.0)
[2018-11-24 05:39] LABS: Alanine Aminotransferase 14 U/L (12-78); Albumin 3.4 g/dL (3.4-5.0); Anion Gap 8 meq/L (5-15); Aspartate Aminotransferase 10 U/L (15-37); Blood Urea Nitrogen 28 mg/dL (7-18); Carbon Dioxide 30.3 meq/L (21.0-32.0); Chloride 103 meq/L (98-107); Glomerular Filtration Rate 50 mL/min (>89); Glucose,Random 122 mg/dL (74-106); Magnesium 2.3 mg/dL (1.5-2.5); Potassium 3.2 meq/L (3.5-5.1); Sodium 141 meq/L (136-145)
[2018-11-24 05:42] LABS: Alkaline Phosphatase 66 U/L (45-117); Total Protein 6.7 g/dL (6.4-8.2)
[2018-11-24] MEDS: Enoxaparin Inj 40 MG/0.4 ML Syringe SQ SCH (08:44)
[2018-11-24] MEDS: Famotidine PF Inj 20 MG/2 ML Vial IV.PUSH SCH ×2 (08:45→20:59)
[2018-11-24] MEDS: traZODone 50 MG Tablet PO SCH (08:46)
[2018-11-24] MEDS: Azithromycin Inj 250 MG in Sodium Chlor 0.9% Inj 250 ML IV.SIG SCH (08:49)
[2018-11-24] MEDS ORDERED: TIOTROPIUM BROMIDE INH SCH (09:00)
[2018-11-24] MEDS: Chlorhexidine 0.12% Oral Kit 15 ML UDC OROPHARYNG SCH ×2 (09:04→20:02)
[2018-11-24] MEDS: Budesonide-Formoterol 160/4.5 MCG 6 GM Inhaler INH SCH ×2 (09:05→20:59)
--- NOTE | 2018-11-24 13:04 | P.PNCC ---
Subjective Subjective Remarks/Hospital Course: Patient is a 63-year-old male who normally lives in [place], currently visiting son in [facility]. He has a history of CHF EF 25%, probable COPD, continued tobacco abuse, hypertension, dyslipidemia. Patient developed severe dyspnea while at his son's home EMS was called oxygen sats were in 80s blood pressure was 180/120. Due to impending respiratory failure patient was emergently intubated by the EMS. ER workup including chest x-ray showed bilateral pulmonary edema and probable right lung consolidation. BUN/Cr 34/1.71, BNP 589. ABG 7.23/59/24 BE -3.1 PO2 106. Patient received breathing treatment, antibiotics Rocephin and azithromycin and 60 mg of IV Lasix in the ED. critical care medicine was consulted for admission I evaluated the patient in the ED. his son is at the bedside. Currently sedated with propofol and fentanyl mildly hypotensive. Bilateral crackles on exam. He acknowledges history of CHF indicates that this ejection fraction is 25%. Patient is currently making urine with 60 mg IV Lasix given. We will start Lasix 40 mg scheduled every 8 hours. Placed on scheduled DuoNeb and as needed. Change antibiotic to cefepime and azithromycin. May need to start low- dose Levophed to maintain map above 65 11/13: Patient is alert awake on the vent following commands. Tolerating CPAP. Chest x-ray shows improving pulmonary edema. Cultures negative to date. Urine output almost 3 L with Lasix. Creatinine slightly worse than 1.8 11/24: Resting in bed on nsal cannula. Objective Vital Signs / I&O: Vital Signs 11/23/18 13:30 11/23/18 14:00 11/23/18 14:31 Temperature Pulse Rate 77 82 90 Respiratory Rate 22 Blood Pressure 117/68 107/68 109/67 Pulse Oximetry 91 L 92 L 89 L 11/23/18 15:00 11/23/18 15:27 11/23/18 16:00 Temperature 98.9 F Pulse Rate 89 93 H 84 Respiratory Rate 20 18 Blood Pressure 121/87 121/87 114/58 L Pulse Oximetry 93 L 90 L 84 L 11/23/18 17:00 11/23/18 17:08 11/23/18 17:30 Temperature Pulse Rate 82 87 81 Respiratory Rate Blood Pressure 104/64 103/63 Pulse Oximetry 87 L 91 L 90 L 11/23/18 18:00 11/23/18 18:01 11/23/18 18:31 Temperature Pulse Rate 86 82 92 H Respiratory Rate Blood Pressure 114/58 L 126/66 Pulse Oximetry 92 L 92 L 93 L 11/23/18 19:00 11/23/18 19:30 11/23/18 20:00 Temperature 98.1 F Pulse Rate 86 81 81 Respiratory Rate Blood Pressure 114/73 114/66 105/66 Pulse Oximetry 95 92 L 95 11/23/18 20:30 11/23/18 20:43 11/23/18 21:00 Temperature Pulse Rate 85 102 H 93 H Respiratory Rate 22 Blood Pressure 105/63 111/72 Pulse Oximetry 95 96 91 L 11/23/18 21:30 11/23/18 22:00 11/23/18 22:30 Temperature Pulse Rate 92 H 85 81 Respiratory Rate Blood Pressure 111/62 100/65 104/71 Pulse Oximetry 96 95 91 L 11/23/18 23:00 11/23/18 23:30 11/24/18 00:00 Temperature Pulse Rate 81 83 78 Respiratory Rate Blood Pressure 100/62 104/65 99/56 L Pulse Oximetry 93 L 94 L 95 11/24/18 00:30 11/24/18 01:00 11/24/18 01:30 Temperature Pulse Rate 81 75 75 Respiratory Rate Blood Pressure 104/61 106/62 107/62 Pulse Oximetry 93 L 93 L 93 L 11/24/18 02:00 11/24/18 02:30 11/24/18 03:00 Temperature Pulse Rate 76 87 76 Respiratory Rate Blood Pressure 104/60 95/57 L 101/59 L Pulse Oximetry 93 L 94 L 93 L 11/24/18 03:05 11/24/18 03:30 11/24/18 04:00 Temperature Pulse Rate 92 H 79 72 Respiratory Rate 18 Blood Pressure 96/60 L 97/54 L Pulse Oximetry 95 92 L 11/24/18 04:30 11/24/18 05:00 11/24/18 07:00 Temperature Pulse Rate 72 71 Respiratory Rate Blood Pressure 100/58 L 102/57 L Pulse Oximetry 94 L 93 L 95 11/24/18 08:00 11/24/18 08:08 11/24/18 08:09 Temperature 98.0 F Pulse Rate 83 76 Respiratory Rate 20 18 Blood Pressure 102/65 Pulse Oximetry 95 95 11/24/18 12:00 Temperature 98.2 F Pulse Rate 77 Respiratory Rate 18 Blood Pressure 104/63 Pulse Oximetry 95 Intake & Output 11/23/18 11/24/18 11/24/18 18:59 06:59 18:59 Intake Total 700 / 700 950 / 950 Output Total 1999 1300 / 1300 Balance -1300 / -1300 -350 / -350 Weight 70 kg Intake: IV 100 / 100 350 / 350 Azithromycin Inj 250 MG In NS 250 / 250 Inj 250 ML @ 250 mls/hr IV.SIG Q24H REGGIE Rx#:[id number] Maxipime Inj 2,000 MG In NS Inj 100 / 100 100 / 100 100 ML @ 200 mls/hr IV.SIG Q12H REGGIE Rx#:[id number] Oral 600 / 600 600 / 600 Output: Urine Amount (Catheter) 1999 1300 / 1300 Indwelling Urethral Catheter 1999 1300 / 1300 Other: Date of Last Bowel Movement 11/21/18 11/21/18 # Emeses 3 Result Diagrams: 11/24/18 04:16 11/24/18 04:16 Objective Remarks: GENERAL: 63-year-old male, wakes up easily follows commands SKIN: warm/dry. HEAD: Atraumatic. Normocephalic. EYES: Pupils equal and round. No scleral icterus. No injection or drainage. ENT: dry mucous membrane NECK: Trachea midline. + JVD. CARDIOVASCULAR: S1-S2 normal no murmurs RESPIRATORY: Breath sounds present bilaterally. Rales bilaterally. Few expiratory wheezes GASTROINTESTINAL: Abdomen soft, non-tender, nondistended. Hepatic and splenic margins not palpable. MUSCULOSKELETAL: No obvious deformities. No clubbing. No cyanosis. No pedal edema NEUROLOGICAL: Awake and alert. No obvious cranial nerve deficits. Motor grossly within normal limits Assessment and Plan - Problem List (1) Acute hypoxemic respiratory failure Code(s): J96.01 - Acute respiratory failure with hypoxia Status: Acute (2) Hypercarbia Code(s): R06.89 - Other abnormalities of breathing Status: Acute (3) Acute systolic heart failure Code(s): I50.21 - Acute systolic (congestive) heart failure Status: Acute (4) Pulmonary edema Code(s): J81.1 - Chronic pulmonary edema Status: Acute (5) Pneumonia Code(s): J18.9 - Pneumonia, unspecified organism Status: Acute (6) Acute kidney failure Code(s): N17.9 - Acute kidney failure, unspecified Status: Acute (7) History of CHF (congestive heart failure) Code(s): Z86.79 - Personal history of other diseases of the circulatory system Status: Chronic (8) Coronary artery disease Code(s): I25.10 - Atherosclerotic heart disease of [place] coronary artery without angina pectoris Status: Chronic (9) Dyslipidemia Code(s): E78.5 - Hyperlipidemia, unspecified Status: Chronic (10) Ischemic cardiomyopathy Code(s): I25.5 - Ischemic cardiomyopathy Status: Chronic (11) Tobacco abuse Code(s): Z72.0 - Tobacco use Status: Chronic - Assessment and Plan Plan: NEURO: -Hold all sedation for weaning trial RESP: Acute hypoxemic hypercapnic respiratory failure Pulmonary edema Probable pneumonia Probable COPD -PRVC/AC, Ventilator bundle -DuoNeb every 6 hours scheduled and as needed -SBT today with possible extubation -Tobacco cessation counseling -Status post 1 dose of Solu-Medrol 125 mg x1 -Broad-spectrum antibiotic with cefepime and azithromycin CV: Acute systolic heart failure exacerbation Ischemic cardiomyopathy EF 25% per patient Coronary artery disease status post [place] Hypertension Dyslipidemia -IV Lasix 60 mg x1 given in the emergency department, currently on scheduled Lasix 40 mg every 8 hours -Hold CHRIS inhibitor is on beta-blockers due to hypotension. Continue statins -F/u 2D echo, serial troponins GI: -IV famotidine -start cardiac diet : Acute kidney injury -Previous creatinine unknown. -Monitor renal function closely. Andrews catheter. -Further workup if creatinine is not improving -Renal ultrasound ID: Probable pneumonia Sepsis -Antibiotics cefepime and azithromycin -Blood urine and sputum cultures HEME: -Monitor CBC, coags ENDO: -Electrolyte replacement per protocol -Sliding scale insulin if needed PROPH: -Bilateral lower extremity SCDs. Lovenox/famotidine LINES: -Utilize peripheral IVs, central line if needed Tx to hospitalist service.
[2018-11-24] MEDS ORDERED: MethylPREDNISolone Sod Succinate Inj 40 MG/ML Vial IV.PUSH SCH (14:00)
--- NOTE | 2018-11-24 14:24 | MB ---
cc: Humaira Julian MD DATE: 11/24/2018 REASON FOR CONSULTATION: COPD. HISTORY OF PRESENT ILLNESS: The patient is a 63-year-old male with past medical history of COPD, active tobacco use, CHF, cardiomyopathy with ejection fraction of 25%, hypertension, and dyslipidemia. 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 The patient had a chest x-ray on admission, which showed diffuse pulmonary interstitial prominence with some consolidation in the right midlung zone. He was started on broad-spectrum antibiotics. The patient was intubated and placed on mechanical ventilation. His BNP was elevated at 589. In addition, he had mild acute kidney injury with creatinine level of 1.7, which improved to 1.4 today. He was extubated and is currently on 4 liters oxygen with a saturation of 94% to 95%. The patient states that he was hospitalized several times within the last year for COPD exacerbation. He denies any use of oxygen at home; however, he uses Symbicort and Spiriva. He occasionally smokes cigars and used to smoke 2-1/2 packs of cigarettes per day for approximately 50 years. He denies any chest pain, orthopnea, PND, or edema of lower extremities. In addition, he denies any GI symptoms. No nausea, vomiting or abdominal pain. PAST MEDICAL HISTORY: Significant for COPD, CHF, cardiomyopathy, GERD, hypertension, hyperlipidemia. SOCIAL HISTORY: Active smoker, used to smoke 2-1/2 packs of cigarettes daily for 50 years. ALLERGIES: NO KNOWN DRUG ALLERGIES. FAMILY HISTORY: Noncontributory to present illness. ACTIVE MEDICATIONS: Include Lipitor, DuoNeb, Plavix, cefepime, azithromycin, Lasix. REVIEW OF SYSTEMS: As per HPI. The rest of review of systems unremarkable. PHYSICAL EXAMINATION: GENERAL: A 63-year-old male lying in bed in no acute distress. VITAL SIGNS: Afebrile. Temperature 98.2, pulse of 85, blood pressure 104/63, saturation 95% on 4 liter oxygen. HEENT: Atraumatic, normocephalic. Pupils are equal, round, reactive to light and accommodation. Extraocular muscles intact. Conjunctivae pink. Nonicteric sclerae. Oral mucosa within normal. NECK: Supple. No JVD, adenopathy or thyromegaly. Trachea in the midline. CARDIOVASCULAR: Regular rate and rhythm. Normal S1, S2. No murmurs, rubs or gallops noted. PULMONARY: Bilaterally air entry with a few coarse breath sounds. ABDOMEN: Soft, nontender. No distention. Positive bowel sounds. EXTREMITIES: No cyanosis, clubbing, or edema. NEUROLOGIC: No focal sensory deficit. LABORATORY DATA: Sodium 141, potassium 3.2, chloride 103, CO2 of 30, BUN 28, creatinine 1.42, glucose of 122. WBC 9.5, hemoglobin 11.4, hematocrit 33, platelet count 197. RADIOGRAPHIC STUDIES: Chest x-ray from 11/23/2018 showed improved diffuse interstitial prominence and patchy airspace disease in the right mid lung. ASSESSMENT: 1. Acute hypoxemic and hypercapnic respiratory insufficiency, status post extubation. 2. Chronic obstructive pulmonary disease exacerbation. 3. Active tobacco use. 4. Acute kidney injury, improving. 5. Congestive heart failure decompensation. 6. Cardiomyopathy. 7. Hypertension. 8. Coronary artery disease with previous infarction. 9. Probable pneumonia. RECOMMENDATIONS: 1. Continue with oxygen and maintain saturation above 92%. 2. Continue bronchodilators in the form of DuoNeb and Symbicort. 3. Increase Solu-Medrol to 40 mg IV every 8 hours. 4. Noninvasive positive pressure ventilation p.r.n. for respiratory distress. 5. Incentive spirometry every 1 hour while awake. 6. Continue with antibiotics in the form of azithromycin and cefepime. Monitor for signs of infection, which include fever and WBC. Sputum culture from 11/22/2018 showed normal respiratory alanis and influenza screening is negative. We will check strep pneumonia and legionella urinary antigen. 7. Continue with diuretics. He is on Lasix 40 mg IV every 8 hours. 8. We will need a pulmonary function test, when more stable to assess the severity of his obstructive lung disease. 9. Gastrointestinal and deep venous thrombosis prophylaxis. He is on Lovenox 40 mg subcutaneous daily and Pepcid 20 mg IV every 12 hours. 10. Further recommendations will be based on hospital course. Thank you for consultation, and allowing us to participate in this patient's care. MD TROY Marks/rh , 01:38 PM , 01:49 PM
[2018-11-24] MEDS: MethylPREDNISolone Sod Succinate Inj 40 MG/ML Vial IV.PUSH SCH ×2 (15:03→21:00)
[2018-11-25] MEDS: Chlorhexidine Gluconate 2% 1 Pack (2 Cloths) TOPICAL SCH (03:35)
[2018-11-25] MEDS: Oral Hygiene Kit OROPHARYNG SCH ×3 (03:35→15:33)
[2018-11-25] MEDS: MethylPREDNISolone Sod Succinate Inj 40 MG/ML Vial IV.PUSH SCH ×3 (06:14→21:28)
[2018-11-25] MEDS: Chlorhexidine 0.12% Oral Kit 15 ML UDC OROPHARYNG SCH ×2 (09:09→20:16)
[2018-11-25] MEDS: Enoxaparin Inj 40 MG/0.4 ML Syringe SQ SCH (09:27)
[2018-11-25] MEDS: Azithromycin Inj 250 MG in Sodium Chlor 0.9% Inj 250 ML IV.SIG SCH (09:28)
[2018-11-25] MEDS: Famotidine PF Inj 20 MG/2 ML Vial IV.PUSH SCH ×2 (09:28→20:16)
[2018-11-25] MEDS: traZODone 50 MG Tablet PO SCH (09:31)
[2018-11-25] MEDS: Budesonide-Formoterol 160/4.5 MCG 6 GM Inhaler INH SCH ×3 (09:33→20:19)
--- NOTE | 2018-11-25 09:46 | P.PNPL ---
Subjective Interval history: Patient is lying in bed in NAD. Afebrile. On 4L oxygen. Physical Exam Vital signs: Vital Signs 11/24/18 12:00 11/24/18 15:00 11/24/18 16:00 Temperature 98.2 F 98.2 F Pulse Rate 77 91 H 74 Respiratory Rate 18 18 19 Blood Pressure 104/63 103/61 Pulse Oximetry 95 94 L 11/24/18 17:08 11/24/18 18:00 11/24/18 19:00 Temperature 98.2 F Pulse Rate 88 71 76 Respiratory Rate 20 Blood Pressure 107/72 Pulse Oximetry 95 94 L 11/24/18 20:00 11/24/18 21:00 11/24/18 21:54 Temperature 99.5 F Pulse Rate 93 H 85 85 Respiratory Rate 18 18 Blood Pressure 120/83 Pulse Oximetry 94 L 94 L 11/24/18 22:00 11/24/18 23:00 11/25/18 00:00 Temperature 98.9 F Pulse Rate 76 78 83 Respiratory Rate 16 Blood Pressure 95/51 L Pulse Oximetry 96 11/25/18 01:00 11/25/18 02:00 11/25/18 03:00 Temperature Pulse Rate 71 75 66 Respiratory Rate Blood Pressure Pulse Oximetry 11/25/18 04:00 11/25/18 04:25 11/25/18 05:00 Temperature 98.7 F Pulse Rate 81 83 75 Respiratory Rate 16 15 Blood Pressure 96/62 L Pulse Oximetry 98 98 11/25/18 06:00 Temperature Pulse Rate 80 Respiratory Rate Blood Pressure Pulse Oximetry Intake & Output 11/24/18 11/25/18 11/25/18 18:59 06:59 18:59 Intake Total 1310 / 1310 340 / 340 250 / 250 Output Total 1200 / 1200 600 / 600 Balance 110 / 110 -260 / -260 250 / 250 Weight 71 kg Intake: IV 350 / 350 100 / 100 250 / 250 Azithromycin Inj 250 MG In NS 250 / 250 Inj 250 ML @ 250 mls/hr IV.SIG Q24H REGGIE Rx#:[id number] Maxipime Inj 2,000 MG In NS Inj 100 / 100 100 / 100 100 ML @ 200 mls/hr IV.SIG Q12H REGGIE Rx#:[id number] Oral 960 / 960 240 / 240 Output: Urine 600 / 600 Urine Amount (Catheter) 1200 / 1200 Indwelling Urethral Catheter 1200 / 1200 Other: Date of Last Bowel Movement 11/21/18 11/24/18 - Constitutional no acute distress - Routine HEENT Exam Head: Present: normocephalic, atraumatic Eye: Present: EOMI, PERRL, normal accommodation, conjunctivae pink ENT: Present: mucous membranes moist - Routine Neck Exam Present: supple, full ROM, trachea midline - Routine Respiratory Exam Present: CTA bilaterally - Routine Cardiovascular Exam Present: RRR, S1, S2 - Routine Abdominal Exam Present: soft, normoactive bowel sounds - Routine Extremities Exam Present: full ROM, pulses intact - Routine Skin Exam Present: intact - Routine Neurological Exam Present: alert, oriented X3, CN II-XII intact - Urinary Catheter Management Indwelling Urethral Catheter Cath placed during this visit: yes Reason for continuing: Other continuation reason Insertion date: 11/22/18 Assessment and Plan - Assessment (1) Acute hypoxemic respiratory failure Code(s): J96.01 - Acute respiratory failure with hypoxia Status: Acute (2) Hypercarbia Code(s): R06.89 - Other abnormalities of breathing Status: Acute (3) Acute systolic heart failure Code(s): I50.21 - Acute systolic (congestive) heart failure Status: Acute (4) Pulmonary edema Code(s): J81.1 - Chronic pulmonary edema Status: Acute (5) Pneumonia Code(s): J18.9 - Pneumonia, unspecified organism Status: Acute (6) Acute kidney failure Code(s): N17.9 - Acute kidney failure, unspecified Status: Acute (7) History of CHF (congestive heart failure) Code(s): Z86.79 - Personal history of other diseases of the circulatory system Status: Chronic (8) Coronary artery disease Code(s): I25.10 - Atherosclerotic heart disease of [place] coronary artery without angina pectoris Status: Chronic (9) Dyslipidemia Code(s): E78.5 - Hyperlipidemia, unspecified Status: Chronic (10) Ischemic cardiomyopathy Code(s): I25.5 - Ischemic cardiomyopathy Status: Chronic (11) Tobacco abuse Code(s): Z72.0 - Tobacco use Status: Chronic - Plan 1. Acute hypoxemic and hypercapnic respiratory insufficiency 2. COPD 3. Active tobacco use. 4. Acute kidney injury, improving. 5. CHD decompensation. 6. Cardiomyopathy. EF 20-25% 7. Hypertension. 8. Coronary artery disease with previous infarction. 9. Probable pneumonia. Plan Continue with oxygen and maintain sats> 92%. Bronchodilators (DuoNeb and Symbicort). Solu-Medrol to 40 mg IV every 8 hours. BIPAP p.r.n. for respiratory distress. Check CXR/ABG Incentive spirometry every 1 hour while awake. Continue abx(azithromycin and cefepime). Monitor for signs of infection( fever and WBC). Sputum 11/22/2018 : normal respiratory alanis Influenza screening is negative. Strep pneumonia and legionella urinary antigen pending. On Lasix 40 mg IV every 8 hours. PFT when more stable GI/DVT prophylaxis. on Lovenox 40 mg subcu daily and Pepcid 20 mg IV every 12 hours.
--- NOTE | 2018-11-25 10:26 | XR ---
EXAM DATE: 11/25/2018 10:21 AM EST AGE/SEX: 63 years / Male INDICATIONS: Shortness of breath and cough. CLINICAL DATA: This is the patient's subsequent encounter. Patient reports that signs and symptoms h ave been present for 3 days and indicates a pain score of 0/10. MEDICAL/SURGICAL HISTORY: Congestive heart failure. Chronic obstructive pulmonary disease. Em physema. Defibrillator. COMPARISON: C, CHEST 1V SINGLE AP, 11/23/2018. . FINDINGS: Mild pulmonary vascular congestion is noted. The heart is stable. Left subclavian dual lead pacemaker has its tips in right atrium and right ventricle. CONCLUSION: Mild pulmonary vascular congestion. Electronically signed by: Manuel Ch MD Board Certified Radiologist 11/25/2018 10:25 AM EST
[2018-11-25 11:30] LABS: ABG PCO2 42 mmHg (38-42); ABG PO2 76 mmHG (61-120)
--- NOTE | 2018-11-25 11:39 | P.PN ---
Subjective Interval history: Follow-up acute hypoxemic hypercapnic respiratory failure systolic CHF decompensating November 25, 2018-patient seen and examined, reports improvement of shortness of breath and currently on 4 L nasal cannula. Denies any chest pain, dizziness. No acute event overnight. States, he was recently discharged from a hospital back in [place]. Physical Exam Vital signs: Vital Signs 11/24/18 12:00 11/24/18 15:00 11/24/18 16:00 Temperature 98.2 F 98.2 F Pulse Rate 77 91 H 74 Respiratory Rate 18 18 19 Blood Pressure 104/63 103/61 Pulse Oximetry 95 94 L 11/24/18 17:08 11/24/18 18:00 11/24/18 19:00 Temperature 98.2 F Pulse Rate 88 71 76 Respiratory Rate 20 Blood Pressure 107/72 Pulse Oximetry 95 94 L 11/24/18 20:00 11/24/18 21:00 11/24/18 21:54 Temperature 99.5 F Pulse Rate 93 H 85 85 Respiratory Rate 18 18 Blood Pressure 120/83 Pulse Oximetry 94 L 94 L 11/24/18 22:00 11/24/18 23:00 11/25/18 00:00 Temperature 98.9 F Pulse Rate 76 78 83 Respiratory Rate 16 Blood Pressure 95/51 L Pulse Oximetry 96 11/25/18 01:00 11/25/18 02:00 11/25/18 03:00 Temperature Pulse Rate 71 75 66 Respiratory Rate Blood Pressure Pulse Oximetry 11/25/18 04:00 11/25/18 04:25 11/25/18 05:00 Temperature 98.7 F Pulse Rate 81 83 75 Respiratory Rate 16 15 Blood Pressure 96/62 L Pulse Oximetry 98 98 11/25/18 06:00 11/25/18 07:00 11/25/18 08:00 Temperature 98.6 F Pulse Rate 80 95 H 78 Respiratory Rate 18 Blood Pressure 133/87 Pulse Oximetry 92 L 11/25/18 09:00 11/25/18 09:39 11/25/18 10:00 Temperature Pulse Rate 84 90 Respiratory Rate 16 Blood Pressure Pulse Oximetry 93 L 11/25/18 10:58 Temperature Pulse Rate 86 Respiratory Rate Blood Pressure Pulse Oximetry Intake & Output 11/24/18 11/25/18 11/25/18 18:59 06:59 18:59 Intake Total 1310 / 1310 340 / 340 600 / 600 Output Total 1200 / 1200 600 / 600 Balance 110 / 110 -260 / -260 600 / 600 Weight 71 kg Intake: IV 350 / 350 100 / 100 600 / 600 Azithromycin Inj 250 MG In NS 250 / 250 250 / 250 Inj 250 ML @ 250 mls/hr IV.SIG Q24H REGGIE Rx#:[id number] Maxipime Inj 2,000 MG In NS Inj 100 / 100 100 / 100 100 / 100 100 ML @ 200 mls/hr IV.SIG Q12H REGGIE Rx#:[id number] Oral 960 / 960 240 / 240 Output: Urine 600 / 600 Urine Amount (Catheter) 1200 / 1200 Indwelling Urethral Catheter 1200 / 1200 Other: Date of Last Bowel Movement 11/21/18 11/24/18 11/24/18 Narrative: GENERAL: NAD SKIN: Warm and dry. HEAD: Normocephalic. EYES: No scleral icterus. No injection or drainage. NECK: Supple, trachea midline. No JVD or lymphadenopathy. CARDIOVASCULAR: Regular rate and rhythm without murmurs, gallops, or rubs. RESPIRATORY: Breath sounds equal bilaterally. No accessory muscle use. GASTROINTESTINAL: Abdomen soft, non-tender, nondistended. MUSCULOSKELETAL: No cyanosis, or edema. BACK: Nontender without obvious deformity. No CVA tenderness. - Urinary Catheter Management Indwelling Urethral Catheter Cath placed during this visit: yes Reason for continuing: Other continuation reason Insertion date: 11/22/18 Results - Labs CBC & Chem 7: 11/24/18 04:16 11/24/18 04:16 Microbiology 11/22/18 05:45 Blood - Peripheral Aerobic Blood Culture - Preliminary No growth in 3 days 11/22/18 05:45 Blood - Peripheral Anaerobic Blood Culture - Preliminary No growth in 3 days 11/24/18 15:25 Urine - Catheterized Urine Streptococcus pneumoniae Antigen ( M - Final Presumptive negative for streptococcus pneumoniae antigen, suggesting no current or recent infection. Infection due to Streptococcus pneumoniae cannot be ruled out since the antigen present in the sample may be below the detection limit of the test. 11/24/18 15:25 Urine - Catheterized Urine Legionella Antigen - Final Presumptive negative for Legionella pneumophila serogroup 1 antigen in urine, suggesting no recent or recurrent infection. Infection due to Legionella cannot be ruled out since other serogroups and species may cause disease, antigen may not be present in urine in early infection, and the level of antigen present in the urine may be below the detection limit of the test. 11/22/18 12:10 Sputum - Endotracheal Gram Stain - Final 11/22/18 12:10 Sputum - Endotracheal Sputum Culture - Final Light growth normal respiratory alanis - Imaging Impressions Chest X-Ray 11/25/18 09:45 CONCLUSION: Mild pulmonary vascular congestion. Assessment and Plan - Plan 63-year-old man with Acute hypoxemic hypercapnic respiratory failure-resolved Pulmonary edema Probable pneumonia Probable COPD -DuoNeb every 6 hours scheduled and as needed -Tobacco cessation counseling -Currently on Solu-Medrol 40 mg q. 8-hour -Broad-spectrum antibiotic with cefepime and azithromycin Acute systolic heart failure exacerbation Ischemic cardiomyopathy EF 25% per patient Coronary artery disease status post [place] Hypertension Dyslipidemia -currently on scheduled Lasix 40 mg every 8 hours -Hold CHRIS inhibitor is on hold secondary to GHANSHYAM. Continue beta-iam, statins -2D echo with EF 20-25% Acute kidney injury -Previous creatinine unknown. -Renal indices improving, BUN/creatinine 28/1.42 Probable pneumonia Sepsis-resolved -Currently on cefepime and azithromycin -Monitor blood urine and sputum cultures Hypokalemia Give potassium 60 mEq today and monitor electrolyte PROPH: -Bilateral lower extremity SCDs. Lovenox/famotidine PT consult to treat and eval CBC/CMP in a.m.
[2018-11-26] MEDS: Oral Hygiene Kit OROPHARYNG SCH ×5 (01:26→23:56)
[2018-11-26] MEDS: Chlorhexidine Gluconate 2% 1 Pack (2 Cloths) TOPICAL SCH (03:26)
[2018-11-26 06:38] LABS: Baso % (Auto) 0.1 % (0.0-2.0); Hematocrit 33.9 % (39.0-51.0); Hemoglobin 11.8 gm/dL (13.0-17.0); Lymph # (Auto) 1.1 th/mm3 (1.0-4.8); Lymph % (Auto) 9.2 % (9.0-44.0); Mean Corpuscular Hemoglobin 29.7 pg (27.0-34.0); Mean Corpuscular Volume 84.9 fL (80.0-100.0); Mean Platelet Volume 10.5 fL (7.0-11.0); Mono # (Auto) 1.2 th/mm3 (0.0-0.9); Mono % (Auto) 10.7 % (0.0-8.0); Neut # (Auto) 9.2 th/mm3 (1.8-7.7); Platelet Count 213 th/mm3 (150-450); Red Blood Count 3.99 mil/mm3 (4.50-5.90); Red Cell Distribution Width 16.9 % (11.6-17.2); White Blood Count 11.5 th/mm3 (4.0-11.0)
[2018-11-26 06:57] LABS: Albumin 3.5 g/dL (3.4-5.0); Anion Gap 8 meq/L (5-15); Aspartate Aminotransferase 11 U/L (15-37); Blood Urea Nitrogen 26 mg/dL (7-18); Calcium 8.9 mg/dL (8.5-10.1); Chloride 101 meq/L (98-107); Glomerular Filtration Rate 55 mL/min (>89); Glucose,Random 118 mg/dL (74-106); Potassium 3.5 meq/L (3.5-5.1); Sodium 141 meq/L (136-145)
[2018-11-26 07:02] LABS: Alanine Aminotransferase 14 U/L (12-78); Alkaline Phosphatase 57 U/L (45-117); Total Protein 6.8 g/dL (6.4-8.2)
[2018-11-26] MEDS: MethylPREDNISolone Sod Succinate Inj 40 MG/ML Vial IV.PUSH SCH ×3 (07:17→21:12)
[2018-11-26] MEDS: Enoxaparin Inj 40 MG/0.4 ML Syringe SQ SCH (08:29)
[2018-11-26] MEDS: Famotidine PF Inj 20 MG/2 ML Vial IV.PUSH SCH ×2 (08:32→21:12)
[2018-11-26] MEDS: traZODone 50 MG Tablet PO SCH (08:33)
[2018-11-26] MEDS: Chlorhexidine 0.12% Oral Kit 15 ML UDC OROPHARYNG SCH ×2 (08:39→19:54)
[2018-11-26] MEDS: Budesonide-Formoterol 160/4.5 MCG 6 GM Inhaler INH SCH ×2 (08:39→21:12)
[2018-11-26] MEDS: Azithromycin Inj 250 MG in Sodium Chlor 0.9% Inj 250 ML IV.SIG SCH (08:44)
--- NOTE | 2018-11-26 10:44 | P.PNPL ---
Subjective Interval history: Patient is sitting in bed in NAD. Afebrile. Physical Exam Vital signs: Vital Signs 11/25/18 10:58 11/25/18 12:00 11/25/18 12:23 Temperature 98.5 F Pulse Rate 86 78 72 Respiratory Rate 18 Blood Pressure 117/77 Pulse Oximetry 95 11/25/18 14:00 11/25/18 14:39 11/25/18 15:00 Temperature Pulse Rate 82 88 80 Respiratory Rate 16 Blood Pressure Pulse Oximetry 11/25/18 15:31 11/25/18 16:00 11/25/18 17:00 Temperature 98.3 F Pulse Rate 89 81 Respiratory Rate 18 Blood Pressure 108/74 Pulse Oximetry 93 L 94 L 11/25/18 17:19 11/25/18 19:00 11/25/18 20:00 Temperature 99.5 F Pulse Rate 72 78 78 Respiratory Rate 16 Blood Pressure 111/67 Pulse Oximetry 96 11/25/18 21:00 11/25/18 21:33 11/25/18 22:00 Temperature Pulse Rate 82 78 86 Respiratory Rate 16 Blood Pressure Pulse Oximetry 96 11/25/18 23:00 11/26/18 00:00 11/26/18 01:00 Temperature 98.4 F Pulse Rate 82 80 82 Respiratory Rate 18 Blood Pressure 105/69 Pulse Oximetry 96 11/26/18 02:00 11/26/18 03:00 11/26/18 03:10 Temperature Pulse Rate 82 82 76 Respiratory Rate 18 Blood Pressure Pulse Oximetry 11/26/18 04:00 11/26/18 05:00 11/26/18 06:00 Temperature 98.9 F Pulse Rate 71 76 78 Respiratory Rate 16 Blood Pressure 107/76 Pulse Oximetry 97 11/26/18 07:00 11/26/18 08:00 11/26/18 09:00 Temperature 98.2 F Pulse Rate 70 75 82 Respiratory Rate 20 Blood Pressure 98/62 L Pulse Oximetry 94 L 11/26/18 10:00 Temperature Pulse Rate 78 Respiratory Rate Blood Pressure Pulse Oximetry Intake & Output 11/25/18 11/26/18 11/26/18 18:59 06:59 18:59 Intake Total 1200 / 1200 340 / 340 350 / 350 Output Total 800 / 800 1525 / 1525 Balance 400 / 400 -1185 / -1185 350 / 350 Weight 71 kg Intake: IV 600 / 600 100 / 100 350 / 350 Azithromycin Inj 250 MG In NS 250 / 250 250 / 250 Inj 250 ML @ 250 mls/hr IV.SIG Q24H REGGIE Rx#:[id number] Maxipime Inj 2,000 MG In NS Inj 100 / 100 100 / 100 100 / 100 100 ML @ 200 mls/hr IV.SIG Q12H REGGIE Rx#:[id number] Oral 600 / 600 240 / 240 Output: Urine 800 / 800 1525 / 1525 Other: Date of Last Bowel Movement 11/24/18 11/24/18 11/25/18 # Bowel Movements 1 - Constitutional no acute distress - Routine HEENT Exam Head: Present: normocephalic, atraumatic Eye: Present: EOMI, PERRL, normal accommodation, conjunctivae pink ENT: Present: mucous membranes moist - Routine Neck Exam Present: supple, full ROM, trachea midline - Routine Respiratory Exam Present: CTA bilaterally - Routine Cardiovascular Exam Present: RRR, S1, S2 - Routine Abdominal Exam Present: soft, normoactive bowel sounds - Routine Extremities Exam Present: full ROM, pulses intact - Routine Skin Exam Present: intact, dry - Routine Neurological Exam Present: alert, oriented X3, CN II-XII intact - Urinary Catheter Management Indwelling Urethral Catheter Cath placed during this visit: yes Reason for continuing: Other continuation reason Insertion date: 11/22/18 Assessment and Plan - Assessment (1) Acute hypoxemic respiratory failure Code(s): J96.01 - Acute respiratory failure with hypoxia Status: Acute (2) Hypercarbia Code(s): R06.89 - Other abnormalities of breathing Status: Acute (3) Acute systolic heart failure Code(s): I50.21 - Acute systolic (congestive) heart failure Status: Acute (4) Pulmonary edema Code(s): J81.1 - Chronic pulmonary edema Status: Acute (5) Pneumonia Code(s): J18.9 - Pneumonia, unspecified organism Status: Acute (6) Acute kidney failure Code(s): N17.9 - Acute kidney failure, unspecified Status: Acute (7) History of CHF (congestive heart failure) Code(s): Z86.79 - Personal history of other diseases of the circulatory system Status: Chronic (8) Coronary artery disease Code(s): I25.10 - Atherosclerotic heart disease of [place] coronary artery without angina pectoris Status: Chronic (9) Dyslipidemia Code(s): E78.5 - Hyperlipidemia, unspecified Status: Chronic (10) Ischemic cardiomyopathy Code(s): I25.5 - Ischemic cardiomyopathy Status: Chronic (11) Tobacco abuse Code(s): Z72.0 - Tobacco use Status: Chronic - Plan 1. Acute hypoxemic and hypercapnic respiratory insufficiency 2. COPD 3. Active tobacco use. 4. Acute kidney injury, improving. 5. CHD decompensation. 6. Cardiomyopathy. EF 20-25% 7. Hypertension. 8. Coronary artery disease with previous infarction. 9. Probable pneumonia. Plan Continue with oxygen and maintain sats> 92%. Bronchodilators (DuoNeb and Symbicort). Decrease Solu-Medrol to 40 mg IV Q12 BIPAP p.r.n. for respiratory distress. Asses for home oxygen prior to discharge Incentive spirometry every 1 hour while awake. CXR yesterday- Mild pulmonary vascular congestion. Continue abx(azithromycin and cefepime). Monitor for signs of infection( fever and WBC). Sputum 11/22/2018 : normal respiratory alanis Influenza screening is negative. Strep pneumonia and legionella urinary antigen pending. On Lasix 40 mg IV every 8 hours. GI/DVT prophylaxis. on Lovenox 40 mg subcu daily and Pepcid 20 mg IV every 12 hours. Possible d/c tomorrow on taper dose PO prednisone, PFT as outpatient.
--- NOTE | 2018-11-26 12:20 | P.PN ---
Subjective Interval history: Follow-up acute hypoxemic hypercapnic respiratory failure systolic CHF decompensating November 25, 2018-patient seen and examined, reports improvement of shortness of breath and currently on 4 L nasal cannula. Denies any chest pain, dizziness. No acute event overnight. States, he was recently discharged from a hospital back in [place]. November 26, 2018-patient seen and examined, no chest pain or shortness of breath. Only complains of gas pain. Looking forward going home likely tomorrow. Physical Exam Vital signs: Vital Signs 11/25/18 12:23 11/25/18 14:00 11/25/18 14:39 Temperature Pulse Rate 72 82 88 Respiratory Rate Blood Pressure Pulse Oximetry 11/25/18 15:00 11/25/18 15:31 11/25/18 16:00 Temperature 98.3 F Pulse Rate 80 89 Respiratory Rate 16 18 Blood Pressure 108/74 Pulse Oximetry 93 L 94 L 11/25/18 17:00 11/25/18 17:19 11/25/18 19:00 Temperature Pulse Rate 81 72 78 Respiratory Rate Blood Pressure Pulse Oximetry 11/25/18 20:00 11/25/18 21:00 11/25/18 21:33 Temperature 99.5 F Pulse Rate 78 82 78 Respiratory Rate 16 16 Blood Pressure 111/67 Pulse Oximetry 96 96 11/25/18 22:00 11/25/18 23:00 11/26/18 00:00 Temperature 98.4 F Pulse Rate 86 82 80 Respiratory Rate 18 Blood Pressure 105/69 Pulse Oximetry 96 11/26/18 01:00 11/26/18 02:00 11/26/18 03:00 Temperature Pulse Rate 82 82 82 Respiratory Rate Blood Pressure Pulse Oximetry 11/26/18 03:10 11/26/18 04:00 11/26/18 05:00 Temperature 98.9 F Pulse Rate 76 71 76 Respiratory Rate 18 16 Blood Pressure 107/76 Pulse Oximetry 97 11/26/18 06:00 11/26/18 07:00 11/26/18 08:00 Temperature 98.2 F Pulse Rate 78 70 75 Respiratory Rate 20 Blood Pressure 98/62 L Pulse Oximetry 94 L 11/26/18 09:00 11/26/18 10:00 11/26/18 11:00 Temperature Pulse Rate 82 78 72 Respiratory Rate Blood Pressure Pulse Oximetry 11/26/18 11:53 11/26/18 11:54 11/26/18 11:57 Temperature 98.4 F Pulse Rate 79 75 Respiratory Rate 20 Blood Pressure 104/73 Pulse Oximetry 94 L 94 L Intake & Output 11/25/18 11/26/18 11/26/18 18:59 06:59 18:59 Intake Total 1200 / 1200 340 / 340 350 / 350 Output Total 800 / 800 1525 / 1525 Balance 400 / 400 -1185 / -1185 350 / 350 Weight 71 kg Intake: IV 600 / 600 100 / 100 350 / 350 Azithromycin Inj 250 MG In NS 250 / 250 250 / 250 Inj 250 ML @ 250 mls/hr IV.SIG Q24H REGGIE Rx#:[id number] Maxipime Inj 2,000 MG In NS Inj 100 / 100 100 / 100 100 / 100 100 ML @ 200 mls/hr IV.SIG Q12H REGGIE Rx#:[id number] Oral 600 / 600 240 / 240 Output: Urine 800 / 800 1525 / 1525 Other: Date of Last Bowel Movement 11/24/18 11/24/18 11/25/18 # Bowel Movements 1 Narrative: GENERAL: NAD SKIN: Warm and dry. HEAD: Normocephalic. EYES: No scleral icterus. No injection or drainage. NECK: Supple, trachea midline. No JVD or lymphadenopathy. CARDIOVASCULAR: Regular rate and rhythm without murmurs, gallops, or rubs. RESPIRATORY: Breath sounds equal bilaterally. No accessory muscle use. GASTROINTESTINAL: Abdomen soft, non-tender, nondistended. MUSCULOSKELETAL: No cyanosis, or edema. BACK: Nontender without obvious deformity. No CVA tenderness. - Urinary Catheter Management Indwelling Urethral Catheter Cath placed during this visit: yes Reason for continuing: Other continuation reason Insertion date: 11/22/18 Results - Labs CBC & Chem 7: 11/26/18 05:14 11/26/18 05:14 Laboratory Results - last 24 hr 11/26/18 11/26/18 05:14 05:14 WBC 11.5 H RBC 3.99 L Hgb 11.8 L Hct 33.9 L MCV 84.9 MCH 29.7 MCHC 35.0 RDW 16.9 Plt Count 213 MPV 10.5 Neut % (Auto) 80.0 H Lymph % (Auto) 9.2 Simpson % (Auto) 10.7 H Eos % (Auto) 0.0 Baso % (Auto) 0.1 Neut # (Auto) 9.2 H Lymph # (Auto) 1.1 Simpson # (Auto) 1.2 H Eos # (Auto) 0.0 Baso # (Auto) 0.0 WBC Differential . Differential Comment Auto diff final Sodium 141 Potassium 3.5 Chloride 101 Carbon Dioxide 32.0 Anion Gap 8 BUN 26 H Creatinine 1.31 H Estimated GFR 55 L Random Glucose 118 H Calcium 8.9 Total Bilirubin 0.4 AST 11 L ALT 14 Alkaline Phosphatase 57 Total Protein 6.8 Albumin 3.5 Microbiology 11/22/18 05:45 Blood - Peripheral Aerobic Blood Culture - Preliminary No growth in 4 days 11/22/18 05:45 Blood - Peripheral Anaerobic Blood Culture - Preliminary No growth in 4 days 11/24/18 15:25 Urine - Catheterized Urine Streptococcus pneumoniae Antigen ( M - Final Presumptive negative for streptococcus pneumoniae antigen, suggesting no current or recent infection. Infection due to Streptococcus pneumoniae cannot be ruled out since the antigen present in the sample may be below the detection limit of the test. 11/24/18 15:25 Urine - Catheterized Urine Legionella Antigen - Final Presumptive negative for Legionella pneumophila serogroup 1 antigen in urine, suggesting no recent or recurrent infection. Infection due to Legionella cannot be ruled out since other serogroups and species may cause disease, antigen may not be present in urine in early infection, and the level of antigen present in the urine may be below the detection limit of the test. - Procedures none Assessment and Plan - Plan 63-year-old man with Acute hypoxemic hypercapnic respiratory failure-resolved Pulmonary edema Probable pneumonia Probable COPD -DuoNeb every 6 hours scheduled and as needed -Tobacco cessation counseling -Currently on Solu-Medrol 40 mg q. 8-hour, will transition to p.o. prednisone November 27, 2018 -Broad-spectrum antibiotic with cefepime and azithromycin Acute systolic heart failure exacerbation Ischemic cardiomyopathy EF 25% per patient Coronary artery disease status post [place] Hypertension Dyslipidemia -currently on scheduled Lasix 40 mg every 8 hours -Hold CHRIS inhibitor is on hold secondary to GHANSHYAM. Continue beta-iam, statins -2D echo with EF 20-25% Acute kidney injury -Previous creatinine unknown. -Renal indices improving Probable pneumonia Sepsis-resolved -Currently on cefepime and azithromycin -Monitor blood urine and sputum cultures Hypokalemia Resolve post electrolyte replacement PROPH: -Bilateral lower extremity SCDs. Lovenox/famotidine PT to treat and eval
[2018-11-27 00:10] VITALS: RESP 18
[2018-11-27] MEDS: Oral Hygiene Kit OROPHARYNG SCH (03:14)
[2018-11-27] MEDS: Chlorhexidine Gluconate 2% 1 Pack (2 Cloths) TOPICAL SCH (03:14)
[2018-11-27] MEDS: Azithromycin Inj 250 MG in Sodium Chlor 0.9% Inj 250 ML IV.SIG SCH (08:24)
[2018-11-27] MEDS: Enoxaparin Inj 40 MG/0.4 ML Syringe SQ SCH (08:24)
[2018-11-27] MEDS: traZODone 50 MG Tablet PO SCH (08:25)
[2018-11-27] MEDS: MethylPREDNISolone Sod Succinate Inj 40 MG/ML Vial IV.PUSH SCH (08:25)
[2018-11-27] MEDS: Budesonide-Formoterol 160/4.5 MCG 6 GM Inhaler INH SCH (08:26)
[2018-11-27] MEDS: Chlorhexidine 0.12% Oral Kit 15 ML UDC OROPHARYNG SCH (08:26)
[2018-11-27] MEDS: Famotidine PF Inj 20 MG/2 ML Vial IV.PUSH SCH (08:26)
[2018-11-27 09:37] VITALS: BP 104/72; TEMP 97.8; O2SAT 93
[2018-11-27 09:40] VITALS: PULSE 78
--- NOTE | 2018-11-27 10:11 | P.PNPL ---
Subjective Interval history: No events overnight. On room air oxygen. For possible discharge today. Afebrile. Physical Exam Vital signs: Vital Signs 11/26/18 11:00 11/26/18 11:53 11/26/18 11:54 Temperature 98.4 F Pulse Rate 72 79 Respiratory Rate 20 Blood Pressure 104/73 Pulse Oximetry 94 L 94 L 11/26/18 11:57 11/26/18 13:00 11/26/18 13:33 Temperature Pulse Rate 75 77 84 Respiratory Rate Blood Pressure Pulse Oximetry 11/26/18 15:00 11/26/18 16:00 11/26/18 17:00 Temperature 99.1 F Pulse Rate 82 78 87 Respiratory Rate 18 Blood Pressure 94/69 L Pulse Oximetry 94 L 11/26/18 17:19 11/26/18 17:20 11/26/18 19:00 Temperature Pulse Rate 74 72 76 Respiratory Rate Blood Pressure Pulse Oximetry 11/26/18 20:00 11/26/18 21:00 11/26/18 22:00 Temperature 98.4 F Pulse Rate 71 75 75 Respiratory Rate 19 Blood Pressure 100/67 Pulse Oximetry 93 L 11/26/18 23:00 11/27/18 00:00 11/27/18 01:00 Temperature 98.5 F Pulse Rate 70 73 64 Respiratory Rate 18 Blood Pressure 81/46 L Pulse Oximetry 95 11/27/18 01:10 11/27/18 01:13 11/27/18 02:00 Temperature Pulse Rate 66 Respiratory Rate Blood Pressure 86/49 L 117/67 Pulse Oximetry 11/27/18 03:00 11/27/18 04:00 11/27/18 05:00 Temperature 98.8 F Pulse Rate 60 71 63 Respiratory Rate 18 Blood Pressure 99/69 L Pulse Oximetry 95 11/27/18 06:00 11/27/18 07:00 11/27/18 08:00 Temperature 97.8 F Pulse Rate 62 73 66 Respiratory Rate 18 Blood Pressure 104/72 Pulse Oximetry 93 L 11/27/18 09:00 Temperature Pulse Rate 78 Respiratory Rate Blood Pressure Pulse Oximetry Intake & Output 11/26/18 11/27/18 11/27/18 18:59 06:59 18:59 Intake Total 350 / 350 340 / 340 Output Total 900 / 900 900 / 900 Balance -550 / -550 -560 / -560 Weight 70.5 kg Intake: IV 350 / 350 100 / 100 Azithromycin Inj 250 MG In NS 250 / 250 Inj 250 ML @ 250 mls/hr IV.SIG Q24H REGGIE Rx#:[id number] Maxipime Inj 2,000 MG In NS Inj 100 / 100 100 / 100 100 ML @ 200 mls/hr IV.SIG Q12H REGGIE Rx#:[id number] Oral 240 / 240 Output: Urine 900 / 900 900 / 900 Other: # Voids 4 Date of Last Bowel Movement 11/25/18 11/26/18 - Constitutional no acute distress - Routine HEENT Exam Head: Present: normocephalic, atraumatic Eye: Present: EOMI, PERRL, normal accommodation, conjunctivae pink ENT: Present: mucous membranes moist - Routine Neck Exam Present: supple, full ROM, trachea midline - Routine Respiratory Exam Present: CTA bilaterally - Routine Cardiovascular Exam Present: RRR, S1, S2 - Routine Abdominal Exam Present: soft, normoactive bowel sounds - Routine Extremities Exam Present: full ROM, pulses intact - Routine Skin Exam Present: intact, dry - Routine Neurological Exam Present: alert, oriented X3, CN II-XII intact - Urinary Catheter Management Indwelling Urethral Catheter Cath placed during this visit: yes Reason for continuing: Other continuation reason Insertion date: 11/22/18 Assessment and Plan - Assessment (1) Acute hypoxemic respiratory failure Code(s): J96.01 - Acute respiratory failure with hypoxia Status: Acute (2) Hypercarbia Code(s): R06.89 - Other abnormalities of breathing Status: Acute (3) Acute systolic heart failure Code(s): I50.21 - Acute systolic (congestive) heart failure Status: Acute (4) Pulmonary edema Code(s): J81.1 - Chronic pulmonary edema Status: Acute (5) Pneumonia Code(s): J18.9 - Pneumonia, unspecified organism Status: Acute (6) Acute kidney failure Code(s): N17.9 - Acute kidney failure, unspecified Status: Acute (7) History of CHF (congestive heart failure) Code(s): Z86.79 - Personal history of other diseases of the circulatory system Status: Chronic (8) Coronary artery disease Code(s): I25.10 - Atherosclerotic heart disease of [place] coronary artery without angina pectoris Status: Chronic (9) Dyslipidemia Code(s): E78.5 - Hyperlipidemia, unspecified Status: Chronic (10) Ischemic cardiomyopathy Code(s): I25.5 - Ischemic cardiomyopathy Status: Chronic (11) Tobacco abuse Code(s): Z72.0 - Tobacco use Status: Chronic - Plan 1. Resp Insuff...improved 2. COPD 3. Active tobacco use. 4. Acute kidney injury, improving. 5. CHD decompensation. 6. Cardiomyopathy. EF 20-25% 7. Hypertension. 8. Coronary artery disease with previous infarction. 9. Probable pneumonia. Plan oxygen PRN maintain sats> 92%. Bronchodilators (DuoNeb and Symbicort). Prednisone 20mg daily BIPAP p.r.n. for respiratory distress. Asses for home oxygen prior to discharge Incentive spirometry every 1 hour while awake. CXR 11/25- Mild pulmonary vascular congestion. Continue abx. Monitor for signs of infection( fever and WBC). Sputum 11/22/2018 : normal respiratory alanis Influenza screening, Strep pneumonia and legionella urinary antigen all negative GI/DVT prophylaxis. on Lovenox 40 mg subcu daily and Pepcid 20 mg IV every 12 hours. Ok for d/c today from Pulm standpoint on taper dose PO prednisone. Patient is advised to follow up with his [facility] in [place] upon return.
--- NOTE | 2018-11-27 12:18 | P.PN ---
Subjective Interval history: Follow-up acute hypoxemic hypercapnic respiratory failure systolic CHF decompensating November 25, 2018-patient seen and examined, reports improvement of shortness of breath and currently on 4 L nasal cannula. Denies any chest pain, dizziness. No acute event overnight. States, he was recently discharged from a hospital back in [place]. November 26, 2018-patient seen and examined, no chest pain or shortness of breath. Only complains of gas pain. Looking forward going home likely tomorrow. November 27, 2018-patient seen and examined, stable, no dizziness, chest pain, shortness of breath. Physical Exam Vital signs: Vital Signs 11/26/18 13:00 11/26/18 13:33 11/26/18 15:00 Temperature Pulse Rate 77 84 82 Respiratory Rate Blood Pressure Pulse Oximetry 11/26/18 16:00 11/26/18 17:00 11/26/18 17:19 Temperature 99.1 F Pulse Rate 78 87 74 Respiratory Rate 18 Blood Pressure 94/69 L Pulse Oximetry 94 L 11/26/18 17:20 11/26/18 19:00 11/26/18 20:00 Temperature 98.4 F Pulse Rate 72 76 71 Respiratory Rate 19 Blood Pressure 100/67 Pulse Oximetry 93 L 11/26/18 21:00 11/26/18 22:00 11/26/18 23:00 Temperature Pulse Rate 75 75 70 Respiratory Rate Blood Pressure Pulse Oximetry 11/27/18 00:00 11/27/18 01:00 11/27/18 01:10 Temperature 98.5 F Pulse Rate 73 64 Respiratory Rate 18 Blood Pressure 81/46 L 86/49 L Pulse Oximetry 95 11/27/18 01:13 11/27/18 02:00 11/27/18 03:00 Temperature Pulse Rate 66 60 Respiratory Rate Blood Pressure 117/67 Pulse Oximetry 11/27/18 04:00 11/27/18 05:00 11/27/18 06:00 Temperature 98.8 F Pulse Rate 71 63 62 Respiratory Rate 18 Blood Pressure 99/69 L Pulse Oximetry 95 11/27/18 07:00 11/27/18 08:00 11/27/18 09:00 Temperature 97.8 F Pulse Rate 73 66 78 Respiratory Rate 18 Blood Pressure 104/72 Pulse Oximetry 93 L Intake & Output 11/26/18 11/27/18 11/27/18 18:59 06:59 18:59 Intake Total 350 / 350 340 / 340 Output Total 900 / 900 900 / 900 Balance -550 / -550 -560 / -560 Weight 70.5 kg Intake: IV 350 / 350 100 / 100 Azithromycin Inj 250 MG In NS 250 / 250 Inj 250 ML @ 250 mls/hr IV.SIG Q24H REGGIE Rx#:[id number] Maxipime Inj 2,000 MG In NS Inj 100 / 100 100 / 100 100 ML @ 200 mls/hr IV.SIG Q12H REGGIE Rx#:[id number] Oral 240 / 240 Output: Urine 900 / 900 900 / 900 Other: # Voids 4 Date of Last Bowel Movement 11/25/18 11/26/18 Narrative: GENERAL: NAD SKIN: Warm and dry. HEAD: Normocephalic. EYES: No scleral icterus. No injection or drainage. NECK: Supple, trachea midline. No JVD or lymphadenopathy. CARDIOVASCULAR: Regular rate and rhythm without murmurs, gallops, or rubs. RESPIRATORY: Breath sounds equal bilaterally. No accessory muscle use. GASTROINTESTINAL: Abdomen soft, non-tender, nondistended. MUSCULOSKELETAL: No cyanosis, or edema. BACK: Nontender without obvious deformity. No CVA tenderness. - Urinary Catheter Management Indwelling Urethral Catheter Cath placed during this visit: yes Reason for continuing: Other continuation reason Insertion date: 11/22/18 Results - Labs CBC & Chem 7: 11/26/18 05:14 11/26/18 05:14 Microbiology 11/22/18 05:45 Blood - Peripheral Aerobic Blood Culture - Final No growth in 5 days 11/22/18 05:45 Blood - Peripheral Anaerobic Blood Culture - Final No growth in 5 days - Procedures none Assessment and Plan - Plan 63-year-old man with Acute hypoxemic hypercapnic respiratory failure-resolved Pulmonary edema Probable pneumonia Probable COPD -DuoNeb every 6 hours scheduled and as needed -Tobacco cessation counseling -d/c Solu-Medrol 40 mg q. 8-hour, start p.o. prednisone November 27, 2018 -Broad-spectrum antibiotic with cefepime and azithromycin Acute systolic heart failure exacerbation Ischemic cardiomyopathy EF 25% per patient Coronary artery disease status post [place] Hypertension Dyslipidemia -currently on scheduled Lasix 40 mg every 8 hours -Hold CHRIS inhibitor is on hold secondary to GHANSHYAM. Continue beta-iam, statins -2D echo with EF 20-25% Acute kidney injury -Previous creatinine unknown. -Renal indices improving Probable pneumonia Sepsis-resolved -Currently on cefepime and azithromycin -Monitor blood urine and sputum cultures Hypokalemia Resolve post electrolyte replacement PROPH: -Bilateral lower extremity SCDs. Lovenox/famotidine PT to treat and eval
--- NOTE | 2018-11-27 12:19 | P.DS ---
Date of admission: 11/22/18 07:30 Primary care physician: UNKNOWN Brief History from admission: Patient is a 63-year-old male who normally lives in [place], currently visiting son in [facility]. He has a history of CHF EF 25%, probable COPD, continued tobacco abuse, hypertension, dyslipidemia. Patient developed severe dyspnea while at his son's home EMS was called oxygen sats were in 80s blood pressure was 180/120. Due to impending respiratory failure patient was emergently intubated by the EMS. ER workup including chest x-ray showed bilateral pulmonary edema and probable right lung consolidation. BUN/Cr 34/1.71, BNP 589. ABG 7.23/59/24 BE -3.1 PO2 106. Patient received breathing treatment, antibiotics Rocephin and azithromycin and 60 mg of IV Lasix in the ED. critical care medicine was consulted for admission I evaluated the patient in the ED. his son is at the bedside. Currently sedated with propofol and fentanyl mildly hypotensive. Bilateral crackles on exam. He acknowledges history of CHF indicates that this ejection fraction is 25%. Patient is currently making urine with 60 mg IV Lasix given. We will start Lasix 40 mg scheduled every 8 hours. Placed on scheduled DuoNeb and as needed. Change antibiotic to cefepime and azithromycin. May need to start low- dose Levophed to maintain map above 65 DS: Medications - Discharge Medications Prescriptions: albuterol sulfate [Ventolin HFA] 2 puff INHALATION Q4-6H PRN #1 g PRN Reason: Shortness Of Breath azithromycin 500 mg PO DAILY #3 tab ipratropium bromide [Atrovent HFA] 1 puff INHALATION QID #1 g potassium chloride 20 meq PO DAILY #30 cap prednisone 20 mg PO DAILY #7 tab DS: Summary Hospital Course: While in hospital, patient was treated for: Acute hypoxemic hypercapnic respiratory failure-resolved Pulmonary edema Probable pneumonia Probable COPD -DuoNeb every 6 hours scheduled and as needed -Tobacco cessation counseling -Initially treated with Solu-Medrol 40 mg q. 8-hour, and switched to prednisone November 27, 2018 -Pulmonary medicine was consulted and patient was advised to follow outpatient with his doctor -Broad-spectrum antibiotic with cefepime and azithromycin Acute systolic heart failure exacerbation Ischemic cardiomyopathy EF 25% per patient Coronary artery disease status post [place] Hypertension Dyslipidemia -He was started on IV Lasix and subsequently switched to p.o. prior to discharge. -Hold CHRIS inhibitor is on hold secondary to GHANSHYAM. Continue beta-iam, statins -2D echo with EF 20-25% Acute kidney injury -Previous creatinine unknown. -Renal indices improving Probable pneumonia Sepsis-resolved -He was treated with cefepime and azithromycin -Monitor blood urine and sputum cultures Hypokalemia Resolve post electrolyte replacement PROPH: -Bilateral lower extremity SCDs. Lovenox/famotidine PT to treat and eval - Time Spent with Patient Total time spent providing and/or coordinating discharge services: Less than 30 minutes Exam Vital signs: Vital Signs 11/26/18 13:00 11/26/18 13:33 11/26/18 15:00 Temperature Pulse Rate 77 84 82 Respiratory Rate Blood Pressure Pulse Oximetry 11/26/18 16:00 11/26/18 17:00 11/26/18 17:19 Temperature 99.1 F Pulse Rate 78 87 74 Respiratory Rate 18 Blood Pressure 94/69 L Pulse Oximetry 94 L 11/26/18 17:20 11/26/18 19:00 11/26/18 20:00 Temperature 98.4 F Pulse Rate 72 76 71 Respiratory Rate 19 Blood Pressure 100/67 Pulse Oximetry 93 L 11/26/18 21:00 11/26/18 22:00 11/26/18 23:00 Temperature Pulse Rate 75 75 70 Respiratory Rate Blood Pressure Pulse Oximetry 11/27/18 00:00 11/27/18 01:00 11/27/18 01:10 Temperature 98.5 F Pulse Rate 73 64 Respiratory Rate 18 Blood Pressure 81/46 L 86/49 L Pulse Oximetry 95 11/27/18 01:13 11/27/18 02:00 11/27/18 03:00 Temperature Pulse Rate 66 60 Respiratory Rate Blood Pressure 117/67 Pulse Oximetry 11/27/18 04:00 11/27/18 05:00 11/27/18 06:00 Temperature 98.8 F Pulse Rate 71 63 62 Respiratory Rate 18 Blood Pressure 99/69 L Pulse Oximetry 95 11/27/18 07:00 11/27/18 08:00 11/27/18 09:00 Temperature 97.8 F Pulse Rate 73 66 78 Respiratory Rate 18 Blood Pressure 104/72 Pulse Oximetry 93 L Intake & Output 11/26/18 11/27/18 11/27/18 18:59 06:59 18:59 Intake Total 350 / 350 340 / 340 Output Total 900 / 900 900 / 900 Balance -550 / -550 -560 / -560 Weight 70.5 kg Intake: IV 350 / 350 100 / 100 Azithromycin Inj 250 MG In NS 250 / 250 Inj 250 ML @ 250 mls/hr IV.SIG Q24H REGGIE Rx#:[id number] Maxipime Inj 2,000 MG In NS Inj 100 / 100 100 / 100 100 ML @ 200 mls/hr IV.SIG Q12H REGGIE Rx#:[id number] Oral 240 / 240 Output: Urine 900 / 900 900 / 900 Other: # Voids 4 Date of Last Bowel Movement 11/25/18 11/26/18 Narrative: GENERAL: NAD SKIN: Warm and dry. HEAD: Normocephalic. EYES: No scleral icterus. No injection or drainage. NECK: Supple, trachea midline. No JVD or lymphadenopathy. CARDIOVASCULAR: Regular rate and rhythm without murmurs, gallops, or rubs. RESPIRATORY: Breath sounds equal bilaterally. No accessory muscle use. GASTROINTESTINAL: Abdomen soft, non-tender, nondistended. MUSCULOSKELETAL: No cyanosis, or edema. BACK: Nontender without obvious deformity. No CVA tenderness. Results Procedures completed during hospitalization: none - Impressions ITS Impressions Abdomen/Bladder Ultrasound 11/23/18 00:00 CONCLUSION: 1. No evidence of hydronephrosis. 2. Mild increased echogenicity of the renal parenchyma on the left side. This can be seen with chronic medical renal disease. Chest X-Ray 11/25/18 09:45 CONCLUSION: Mild pulmonary vascular congestion. Discharge Plan - Discharge Disposition Patient Disposition: Discharge Home - Discharge Condition Condition: Good - Discharge Order Discharge Orders: Discharge Order (Routine); Ordered 11/27/18 Ordered By: Dung Price - Physicians Team Primary Care Provider: UNKNOWN, Attending Provider: Dung Price Other Providers: Humaira Julian MD
[2018-11-28] MEDS ORDERED: Azithromycin 250 MG Tablet PO SCH (09:00)
[2018-11-28] MEDS ORDERED: Furosemide 40 MG Tablet PO SCH (09:00)
[2018-11-28] MEDS ORDERED: predniSONE 20 MG Tablet PO SCH (09:00)
== END 2018-11-27 10:30 | disposition home or self-care (01) | DRG 871 ==
LOC: NEPE 05:46 → NEDA 07:30 → HIMC 12:30 → HCIS 11-24 17:00
PROVIDERS: ADMIT Hospitalist; ATTEND Hospitalist
CPT/HCPCS: 36600; 71010; 71045; 76775; 80053; 82805; 83520; 83735; 83880; 84484; 85025; 85027; 85610; 85730; 87040; 87070; 87205; 87275; 87276; 87449; 87641; 87804; 90774; 90784; 92526; 92610; 93005; 93306; 94002; 94003; 94640; 94656; 94657; 94664; 94665; 96374; 97161; 99291; C8952; G0195; J0456; J0692; J0696; J1650; J1940; J2250; J2310; J2405; J2704; J2920; J2930; J3010; J7050